=== PATIENT | male | born 1930 | race American Indian/Alaskan Native ===

== ENCOUNTER 2017-12-26 14:00 | Inpatient (IN) | payer MEDICARE ==
[2017-12-26] MEDS ORDERED: ASPIRIN PO ONE (14:34)
[2017-12-26 15:13] LABS: Basophils % (Auto) 0.4 % (0.0-1.8); Eosinophils % (Auto) 0.1 % (0.0-4.3); Hemoglobin 11.6 gm/dl (11.8-15.2); Lymphocytes # (Auto) 1.3 K/mm3 (1.2-5.4); Lymphocytes % (Auto) 14.3 % (13.4-35.0); Mean Corpuscular HGB Conc 31 % (32-34); Mean Corpuscular Hemoglobin 31 pg (28-32); Mean Corpuscular Volume 98 fl (84-94); Monocytes # (Auto) 0.7 K/mm3 (0.0-0.8); Monocytes % (Auto) 7.6 % (0.0-7.3); Platelet Count 185 K/mm3 (140-440); Red Blood Count 3.79 M/mm3 (3.65-5.03); Red Cell Distribution Width 18.7 % (13.2-15.2)
[2017-12-26 15:31] LABS: INR 1.13 (0.87-1.13)
[2017-12-26 15:32] LABS: Partial Thromboplastin Time 30.5 Sec. (24.2-36.6)
[2017-12-26 15:34] LABS: Chol/HDL Ratio 2.38 %
[2017-12-26] MEDS: LOPRESSOR IV PRN ×3 (16:02→17:11)
--- NOTE | 2017-12-26 16:24 | Emergency Department Report ---
HPI - General Chief Complaint: Chest Pain Time Seen by Provider: 12/26/17 14:48 - HPI HPI: Room 10 The patient is an 87-year-old male presenting with a chief complaint of chest pain. The patient states she's had substernal chest pressure intermittently since yesterday morning. Patient states the pain is associated nausea/vomiting , shortness of breath and diaphoresis. Patient states the pain is becoming going and currently is not present. The patient did not take his normal medications yesterday. Patient states his last stress test and cardiac catheterization occurred approximately 1 year ago Location: Chest, see above Duration: Intermittent since yesterday Quality: Pressure Severity: Currently 0/10 Modifying factors: [see above] Context: [see above] Mode of transportation: [not driving] ED Past Medical Hx - Past Medical History Previous Medical History?: Yes Hx of Cancer: Yes (prostate s/p brachytherapy) Additional medical history: afib - Surgical History Past Surgical History?: No - Family History Family history: no significant - Social History Smoking Status: Never Smoker Substance Use Type: None - Medications Home Medications: Home Medications Medication Instructions Recorded Confirmed Last Taken Type Aspirin 81 mg PO DAILY 12/26/17 12/26/17 Unknown History Cilostazol 50 mg PO BID 12/26/17 12/26/17 Unknown History Coreg 12.5 mg PO BID 12/26/17 12/26/17 Unknown History Lisinopril/Hydrochlorothiazide 20 mg PO DAILY 12/26/17 12/26/17 Unknown History NIFEdipine 30 mg PO BID 12/26/17 12/26/17 Unknown History Plavix 75 mg PO DAILY 12/26/17 12/26/17 Unknown History Rosuvastatin Calcium 20 mg PO DAILY 12/26/17 12/26/17 Unknown History ED Review of Systems ROS: Stated complaint: CHEST PAIN Other details as noted in HPI Constitutional: diaphoresis Respiratory: shortness of breath Cardiovascular: chest pain Gastrointestinal: nausea, vomiting Physical Exam - Physical Exam Vital Signs: Vital Signs 12/26/17 12/26/17 12/26/17 14:36 14:37 15:00 Temperature 97.7 F Pulse Rate 117 H 94 H 112 H Respiratory 20 16 27 H Rate Blood Pressure 124/97 161/89 O2 Sat by Pulse 96 97 95 Oximetry 12/26/17 12/26/17 12/26/17 15:09 15:30 16:02 Temperature Pulse Rate 110 H 137 H Respiratory 28 H 24 Rate Blood Pressure 152/85 O2 Sat by Pulse 96 94 Oximetry Physical Exam: GENERAL: The patient is well-developed well-nourished male sitting on stretcher not appearing to be in acute distress. [] HEENT: Normocephalic. Atraumatic. Extraocular motions are intact. Patient has moist mucous membranes. NECK: Supple. Trachea midline CHEST/LUNGS: Clear to auscultation. There is no respiratory distress noted. HEART/CARDIOVASCULAR: Irregularly irregular. There is tachycardia. There is no gallop rub or murmur. ABDOMEN: Abdomen is soft, nontender. Patient has normal bowel sounds. There is no abdominal distention. SKIN: There is no rash. There is no edema. There is no diaphoresis. NEURO: The patient is awake, alert, and oriented. The patient is cooperative. The patient has normal speech MUSCULOSKELETAL: There is no evidence of acute injury. ED Course Vital Signs 12/26/17 12/26/17 12/26/17 14:36 14:37 15:00 Temperature 97.7 F Pulse Rate 117 H 94 H 112 H Respiratory 20 16 27 H Rate Blood Pressure 124/97 161/89 O2 Sat by Pulse 96 97 95 Oximetry 12/26/17 12/26/17 12/26/17 15:09 15:30 16:02 Temperature Pulse Rate 110 H 137 H Respiratory 28 H 24 Rate Blood Pressure 152/85 O2 Sat by Pulse 96 94 Oximetry ED Medical Decision Making - Lab Data Result diagrams: 12/26/17 14:44 12/26/17 14:44 Laboratory Tests 12/26/17 12/26/17 12/26/17 14:44 14:44 15:11 WBC 9.2 RBC 3.79 Hgb 11.6 L Hct 37.0 MCV 98 H MCH 31 MCHC 31 L RDW 18.7 H Plt Count 185 Lymph % (Auto) 14.3 [place] % (Auto) 7.6 H Eos % (Auto) 0.1 Baso % (Auto) 0.4 Lymph # 1.3 [place] # 0.7 Eos # 0.0 Baso # 0.0 Seg Neutrophils % 77.6 H Seg Neutrophils # 7.2 PT 15.1 H INR 1.13 APTT 30.5 Sodium 140 Potassium 4.6 Chloride 101.8 Carbon Dioxide 22 Anion Gap 21 BUN 31 H Creatinine 1.2 Estimated GFR 57 BUN/Creatinine Ratio 26 Glucose 143 H Calcium 9.0 Troponin T 0.033 H Triglycerides 88 Cholesterol 143 LDL Cholesterol Direct 75 HDL Cholesterol 60 H Cholesterol/HDL Ratio 2.38 - EKG Data Rate: tachycardia (125 bpm) - EKG Data When compared to previous EKG there are: previous EKG unavailable Interpretation: other (H a fibrillation with a rapid ventricular response of 125 bpm) - Radiology Data Radiology results: image reviewed (chest x-ray) interpreted by me: Chest [id number] size left pleural effusion. No pneumothorax - Differential Diagnosis ACS, A. fib with RVR Critical care attestation.: If time is entered above; I have spent that time in minutes in the direct care of this critically ill patient, excluding procedure time. ED Disposition Clinical Impression: Chest pain, Atrial fibrillation with RVR, Pleural effusion, left Disposition: 09 OP ADMIT IP TO THIS HOSP Is pt being admited?: Yes Does the pt Need Aspirin: Yes Condition: Fair Instructions: Chest Pain (ED) Time of Disposition: 16:25
--- NOTE | 2017-12-26 18:20 | XRay Report ---
FINAL REPORT EXAM: XR CHEST 1V AP HISTORY: chest pain TECHNIQUE: Single, portable chest x-ray. PRIORS: None. FINDINGS: Postsurgical changes project over the heart and mild cardiomegaly. Lungs show increased interstitial markings centrally and partially confluent, bibasilar opacities. Possible small right pleural effusion and probable moderate left pleural effusion. No apparent pneumothorax. IMPRESSION: 1. Findings which may represent pulmonary edema versus nonspecific postinflammatory change or pneumonitis, and probable bilateral pleural effusions, left greater than right. Correlate clinically.
[2017-12-26] MEDS ORDERED: ZOFRAN ONE (18:26)
[2017-12-26] MEDS: ZOFRAN IV PRN (18:49)
[2017-12-26] MEDS ORDERED: MORPHINE IV ONE (18:50)
--- NOTE | 2017-12-26 21:05 | History and Physical Report ---
History of Present Illness Date of examination: 12/26/17 Date of admission: 12/26/2017 Chief complaint: Chief complaint: Left-sided chest pain for 1 day History of present illness: ANDREA The patient is an 87-year-old male presenting with a chief complaint of chest pain. The patient states he's had substernal chest pressure intermittently since yesterday morning. Patient states the pain is associated nausea/vomiting , shortness of breath and diaphoresis. Patient states the pain is becoming going and currently is not present. The patient did not take his normal medications yesterday. Patient states his last stress test and cardiac catheterization occurred approximately 1 year ago. Patient was apparently told that he should not get any more stress tests. Past Medical History Previous Medical History?: Yes Hx of Cancer: Yes (prostate s/p brachytherapy) Additional medical history: afib Surgical History Past Surgical History?: No Family History Family history: no significant Social History Smoking Status: Never Smoker Substance Use Type: None Medications Home Medications: Home Medications Medication Instructions Recorded Confirmed Last Taken Type Aspirin 81 mg PO DAILY 12/26/17 12/26/17 Unknown History Cilostazol 50 mg PO BID 12/26/17 12/26/17 Unknown History Coreg 12.5 mg PO BID 12/26/17 12/26/17 Unknown History Lisinopril/Hydrochlorothiazide 20 mg PO DAILY 12/26/17 12/26/17 Unknown History NIFEdipine 30 mg PO BID 12/26/17 12/26/17 Unknown History Plavix 75 mg PO DAILY 12/26/17 12/26/17 Unknown History Rosuvastatin Calcium 20 mg PO DAILY 12/26/17 12/26/17 Unknown History Review of Systems ROS: Stated complaint: CHEST PAIN Other details as noted in HPI Constitutional: diaphoresis Respiratory: shortness of breath Cardiovascular: chest pain Gastrointestinal: nausea, vomiting 14 point review of systems done and essentially negative Medications and Allergies Allergies Allergy/AdvReac Type Severity Reaction Status Date / Time No Known Allergies Allergy Verified 12/26/17 14:37 Home Medications Medication Instructions Recorded Confirmed Last Taken Type Aspirin 81 mg PO DAILY 12/26/17 12/26/17 Unknown History Cilostazol 50 mg PO BID 12/26/17 12/26/17 Unknown History Coreg 12.5 mg PO BID 12/26/17 12/26/17 Unknown History Lisinopril/Hydrochlorothiazide 20 mg PO DAILY 12/26/17 12/26/17 Unknown History NIFEdipine 30 mg PO BID 12/26/17 12/26/17 Unknown History Plavix 75 mg PO DAILY 12/26/17 12/26/17 Unknown History Rosuvastatin Calcium 20 mg PO DAILY 12/26/17 12/26/17 Unknown History Active Meds: Active Medications Ondansetron HCl (Zofran) 4 mg IV Q4H PRN PRN Reason: Nausea And Vomiting Last Admin: 12/26/17 18:49 Dose: 4 mg Review of Systems All systems: negative Exam - Physical Exam Narrative exam: Lying in bed comfortably - Constitutional Vitals: Temp Pulse Resp BP Pulse Ox 97.7 F 101 H 18 132/73 90 12/26/17 14:37 12/26/17 20:30 12/26/17 20:30 12/26/17 20:30 12/26/17 20:00 General appearance: Present: no acute distress, well-nourished - EENT Eyes: Present: PERRL ENT: hearing intact, clear oral mucosa - Neck Neck: Present: supple, normal ROM - Respiratory Respiratory effort: normal Respiratory: bilateral: CTA - Cardiovascular Heart rate: 86 Rhythm: irregularly irregular Heart Sounds: Present: S1 & S2. Absent: rub, click - Extremities Extremities: pulses symmetrical, No edema Peripheral Pulses: within normal limits - Abdominal General gastrointestinal: Present: soft, non-tender, non-distended, normal bowel sounds Male genitourinary: Present: normal - Rectal Rectal Exam: deferred - Integumentary Integumentary: Present: clear, warm, dry - Musculoskeletal Musculoskeletal: gait normal, strength equal bilaterally - Psychiatric Psychiatric: appropriate mood/affect, intact judgment & insight - Neurologic Neurologic: CNII-XII intact, moves all extremities - Allied Health Allied health notes reviewed: nursing, case management Results - Labs CBC & Chem 7: 12/26/17 14:44 12/26/17 14:44 Labs: Laboratory Last Values WBC 9.2 K/mm3 (4.5-11.0) 12/26/17 14:44 RBC 3.79 M/mm3 (3.65-5.03) 12/26/17 14:44 Hgb 11.6 gm/dl (11.8-15.2) L 12/26/17 14:44 Hct 37.0 % (35.5-45.6) 12/26/17 14:44 MCV 98 fl (84-94) H 12/26/17 14:44 MCH 31 pg (28-32) 12/26/17 14:44 MCHC 31 % (32-34) L 12/26/17 14:44 RDW 18.7 % (13.2-15.2) H 12/26/17 14:44 Plt Count 185 K/mm3 (140-440) 12/26/17 14:44 Lymph % (Auto) 14.3 % (13.4-35.0) 12/26/17 14:44 [place] % (Auto) 7.6 % (0.0-7.3) H 12/26/17 14:44 Eos % (Auto) 0.1 % (0.0-4.3) 12/26/17 14:44 Baso % (Auto) 0.4 % (0.0-1.8) 12/26/17 14:44 Lymph # 1.3 K/mm3 (1.2-5.4) 12/26/17 14:44 [place] # 0.7 K/mm3 (0.0-0.8) 12/26/17 14:44 Eos # 0.0 K/mm3 (0.0-0.4) 12/26/17 14:44 Baso # 0.0 K/mm3 (0.0-0.1) 12/26/17 14:44 Seg Neutrophils % 77.6 % (40.0-70.0) H 12/26/17 14:44 Seg Neutrophils # 7.2 K/mm3 (1.8-7.7) 12/26/17 14:44 PT 15.1 Sec. (12.2-14.9) H 12/26/17 15:11 INR 1.13 (0.87-1.13) 12/26/17 15:11 APTT 30.5 Sec. (24.2-36.6) 12/26/17 15:11 Sodium 140 mmol/L (137-145) 12/26/17 14:44 Potassium 4.6 mmol/L (3.6-5.0) 12/26/17 14:44 Chloride 101.8 mmol/L (98-107) 12/26/17 14:44 Carbon Dioxide 22 mmol/L (22-30) 12/26/17 14:44 Anion Gap 21 mmol/L 12/26/17 14:44 BUN 31 mg/dL (9-20) H 12/26/17 14:44 Creatinine 1.2 mg/dL (0.8-1.5) 12/26/17 14:44 Estimated GFR 57 ml/min 12/26/17 14:44 BUN/Creatinine Ratio 26 % 12/26/17 14:44 Glucose 143 mg/dL (75-100) H 12/26/17 14:44 Calcium 9.0 mg/dL (8.4-10.2) 12/26/17 14:44 Troponin T 0.030 ng/mL (0.00-0.029) H 12/26/17 17:04 Triglycerides 88 mg/dL (2-149) 12/26/17 14:44 Cholesterol 143 mg/dL (50-199) 12/26/17 14:44 LDL Cholesterol Direct 75 mg/dL (50-130) 12/26/17 14:44 HDL Cholesterol 60 mg/dL (40-59) H 12/26/17 14:44 Cholesterol/HDL Ratio 2.38 % 12/26/17 14:44 Short CBC 12/26/17 Range/Units 14:44 WBC 9.2 (4.5-11.0) K/mm3 Hgb 11.6 L (11.8-15.2) gm/dl Hct 37.0 (35.5-45.6) % Plt Count 185 (140-440) K/mm3 BMP 12/26/17 14:44 Sodium 140 Potassium 4.6 Chloride 101.8 Carbon Dioxide 22 BUN 31 H Creatinine 1.2 Glucose 143 H Calcium 9.0 Cardiac Enzymes 12/26/17 12/26/17 12/26/17 Range/Units 14:44 17:04 21:13 Troponin T 0.033 H 0.030 H 0.035 H (0.00-0.029) ng/mL - Imaging and Cardiology EKG: report reviewed (atrial fibrillation heart rate of 125 ventricular premature complex left anterior fascicular block EKG interpreted by me) Chest x-ray: report reviewed Imaging and Cardiology: Chest x-ray: FINDINGS: Postsurgical changes project over the heart and mild cardiomegaly. Lungs show increased interstitial markings centrally and partially confluent, bibasilar opacities. Possible small right pleural effusion and probable moderate left pleural effusion. No apparent pneumothorax. IMPRESSION: 1. Findings which may represent pulmonary edema versus nonspecific postinflammatory change or pneumonitis, and probable bilateral pleural effusions , left greater than right. Correlate clinically. Assessment and Plan Advance Directives: Yes (full code) Plan of care discussed with patient/family: Yes - Patient Problems (1) Acute exacerbation of congestive heart failure Onset Date: ~12/26/17 Current Visit: Yes Status: Acute Qualifiers: Heart failure type: combined systolic and diastolic Qualified Code(s): I50.43 - Acute on chronic combined systolic (congestive) and diastolic ( congestive) heart failure Plan to address problem: Patient initiated on IV Lasix Will get echocardiogram for ejection fraction and valvular function and wall motion abnormalities Cardiology consult also (2) Atrial fibrillation with RVR Onset Date: ~12/26/17 Current Visit: Yes Status: Acute Plan to address problem: Are Cardizem given in the emergency room. Transition to by mouth Cardizem. Cardiology consult (3) Chest pain Onset Date: ~12/26/17 Current Visit: Yes Status: Acute Qualifiers: Ischemic chest pain type: unspecified angina pectoris type Plan to address problem: Only troponins ordered. Patient refuses Lexiscan hence did not order Lexiscan. Will defer to cardiology. Patient's symptoms may be because of pulmonary vascular congestion. Will use IV diuretics (4) Prostate cancer Current Visit: Yes Status: Chronic Plan to address problem: In remission (5) Coronary artery disease Current Visit: Yes Status: Chronic Qualifiers: Coronary Disease-Associated Artery/Lesion type: [place] artery [place] vs. transplanted heart: [place] heart Plan to address problem: Continue Plavix (6) DVT prophylaxis Current Visit: Yes Status: Acute Plan to address problem: Heparin 5000 sq 12
[2017-12-26] MEDS ORDERED: ZOFRAN IV PRN (21:14)
[2017-12-26] MEDS ORDERED: AMBIEN PO PRN (21:14)
[2017-12-26] MEDS ORDERED: MORPHINE IV PRN (21:14)
[2017-12-26] MEDS ORDERED: SODIUM CHLORIDE FLUSH SYRINGE 10 ML IV PRN (21:14)
[2017-12-26] MEDS ORDERED: TYLENOL PO PRN (21:14)
[2017-12-26] MEDS: HALFPRIN EC PO SCH (21:30)
[2017-12-26] MEDS ORDERED: NON-FORMULARY (Lisinopril/Hydrochlorothiazide 20 MG) PO SCH (21:30)
[2017-12-26] MEDS: PLAVIX PO SCH (21:30)
[2017-12-26] MEDS ORDERED: HEPARIN SUB-Q SCH (22:00)
[2017-12-26] MEDS ORDERED: NACL 0.9% 1000 ML 1,000 ML IV SCH (22:00)
[2017-12-26] MEDS: SODIUM CHLORIDE FLUSH SYRINGE 10 ML IV SCH (22:00)
[2017-12-26] MEDS: PEPCID IV SCH (22:00)
[2017-12-26] MEDS ORDERED: K-DUR PO ONE (22:55)
[2017-12-26] MEDS ORDERED: PLAVIX ONE (23:45)
[2017-12-26] MEDS ORDERED: COREG ONE (23:46)
[2017-12-26] MEDS ORDERED: HEPARIN ONE (23:48)
[2017-12-26 23:57] LABS: Hematocrit 33.9 % (35.5-45.6); Hemoglobin 10.5 gm/dl (11.8-15.2)
[2017-12-27] MEDS: COREG PO SCH ×2 (00:05→10:34)
[2017-12-27] MEDS: HEPARIN/ 0.45% NACL-25,000 UNIT/500 ML 25,000 UNIT/500 ML BAG IV SCH ×3 (00:06→18:00)
[2017-12-27 00:07] LABS: INR 1.15 (0.87-1.13)
[2017-12-27 00:08] LABS: Partial Thromboplastin Time 29.7 Sec. (24.2-36.6)
[2017-12-27] MEDS ORDERED: PEPCID IV ONE (00:12)
[2017-12-27] MEDS ORDERED: K-DUR PO ONE (00:12)
[2017-12-27] MEDS: PLETAL PO SCH ×3 (00:14→22:28)
[2017-12-27] MEDS: PROCARDIA XL PO SCH ×3 (00:22→22:28)
[2017-12-27 04:29] LABS: Basophils % (Auto) 0.4 % (0.0-1.8); Hematocrit 33.8 % (35.5-45.6); Hemoglobin 10.6 gm/dl (11.8-15.2); Lymphocytes # (Auto) 1.2 K/mm3 (1.2-5.4); Lymphocytes % (Auto) 14.5 % (13.4-35.0); Mean Corpuscular HGB Conc 32 % (32-34); Mean Corpuscular Hemoglobin 31 pg (28-32); Mean Corpuscular Volume 98 fl (84-94); Monocytes # (Auto) 0.7 K/mm3 (0.0-0.8); Monocytes % (Auto) 8.3 % (0.0-7.3); Platelet Count 157 K/mm3 (140-440); Red Blood Count 3.45 M/mm3 (3.65-5.03); Red Cell Distribution Width 19.2 % (13.2-15.2)
[2017-12-27 04:49] LABS: Alanine Aminotransferase 20 units/L (7-56); Albumin 3.7 g/dL (3.9-5); BUN/Creatinine Ratio 38; Blood Urea Nitrogen 45 mg/dL (9-20); Calcium 9.1 mg/dL (8.4-10.2); Hemolysis Index 13
[2017-12-27] MEDS: LASIX IV SCH ×2 (05:10→18:39)
[2017-12-27] MEDS: PEPCID IV SCH ×2 (10:32→22:30)
[2017-12-27] MEDS: PLAVIX PO SCH (10:35)
[2017-12-27] MEDS: HALFPRIN EC PO SCH (10:35)
--- NOTE | 2017-12-27 11:07 | Consultation ---
History of Present Illness Consult date: 12/27/17 Consult reason: chest pain History of present illness: Patient is an 87yr old male who presented with complaints of shortness of breath and chest pain. Patient gives a history of prostate cancer, prior CVA and coronary artery disease with remote bypass grafting. He usually receives his cardiac care with Dr Joshua in [place]. A caridac consultation is requested for further evaluation. A chest xray reports pulmonary edema vs pneumonitis. There is also bilateral pleural effusions. Patient also has bilateral lower extremity edema. Patient also noted hypoxic with O2 sats in the 70s. 12 lead ECG shows rapid atrial fibrillation. Duration of his atrial fibrillation is unknown. Home medications does not list any oral anticoagulants. Medications and Allergies Allergies Allergy/AdvReac Type Severity Reaction Status Date / Time No Known Allergies Allergy Verified 12/26/17 14:37 Home Medications Medication Instructions Recorded Confirmed Last Taken Type Aspirin 81 mg PO DAILY 12/26/17 12/26/17 Unknown History Cilostazol 50 mg PO BID 12/26/17 12/26/17 Unknown History Coreg 12.5 mg PO BID 12/26/17 12/26/17 Unknown History Lisinopril/Hydrochlorothiazide 20 mg PO DAILY 12/26/17 12/26/17 Unknown History NIFEdipine 30 mg PO BID 12/26/17 12/26/17 Unknown History Plavix 75 mg PO DAILY 12/26/17 12/26/17 Unknown History Rosuvastatin Calcium 20 mg PO DAILY 12/26/17 12/26/17 Unknown History Active Meds: Active Medications Acetaminophen (Tylenol) 650 mg PO Q4H PRN PRN Reason: Pain MILD(1-3)/Fever >100.5/BANUELOS Aspirin (Halfprin Ec) 81 mg PO DAILY [facility] Last Admin: 12/27/17 10:35 Dose: 81 mg Atorvastatin Calcium (Lipitor) 40 mg PO QHS [facility] Last Admin: 12/27/17 00:21 Dose: 40 mg Carvedilol (Coreg) 12.5 mg PO BID [facility] Last Admin: 12/27/17 10:34 Dose: 12.5 mg Cilostazol (Pletal) 50 mg PO BID [facility] Last Admin: 12/27/17 10:33 Dose: 50 mg Clopidogrel Bisulfate (Plavix) 75 mg PO DAILY [facility] Last Admin: 12/27/17 10:35 Dose: 75 mg Famotidine (Pepcid) 20 mg IV BID [facility] Last Admin: 12/27/17 10:32 Dose: 20 mg Furosemide (Lasix) 40 mg IV 0600,1800 [facility] Last Admin: 12/27/17 05:10 Dose: 40 mg Sodium Chloride (Nacl 0.9% 1000 Ml) 1,000 mls @ 42 mls/hr IV DIRECT [facility] Heparin Sodium/Sodium Chloride (Heparin/ 0.45% Nacl-25,000 Unit/500 Ml) 25,000 unit in 500 mls @ 24 mls/hr IV TITR [facility]; Protocol Last Admin: 12/27/17 08:35 Dose: 1,150 units/hr, 23 mls/hr Miscellaneous Medication (Lisinopril/Hydrochlorothiazide) 20 mg PO DAILY [facility] Morphine Sulfate (Morphine) 2 mg IV Q4H PRN PRN Reason: Pain, Moderate (4-6) Nifedipine (Procardia Xl) 30 mg PO BID [facility] Last Admin: 12/27/17 10:33 Dose: 30 mg Ondansetron HCl (Zofran) 4 mg IV Q4H PRN PRN Reason: Nausea And Vomiting Last Admin: 12/26/17 18:49 Dose: 4 mg Ondansetron HCl (Zofran) 4 mg IV Q8H PRN PRN Reason: Nausea And Vomiting Sodium Chloride (Sodium Chloride Flush Syringe 10 Ml) 10 ml IV BID [facility] Last Admin: 12/26/17 22:00 Dose: 10 ml Sodium Chloride (Sodium Chloride Flush Syringe 10 Ml) 10 ml IV PRN PRN PRN Reason: LINE FLUSH Zolpidem Tartrate (Ambien) 5 mg PO QHS PRN PRN Reason: Insomnia Physical Examination Vital Signs Pulse Resp Pulse Ox 117 H 20 96 12/26/17 14:36 12/26/17 14:36 12/26/17 14:36 General appearance: no acute distress HEENT: Positive: PERRL Cardiac: Positive: irregularly irregular Lungs: Positive: Decreased Breath Sounds Neuro: Positive: Weakness Extremities: Present: +2 Edema Results 12/27/17 03:44 12/27/17 03:44 Cardiac Enzymes 12/27/17 Range/Units 03:44 AST 25 (5-40) units/L Coagulation 12/26/17 12/26/17 Range/Units 15:11 23:32 PT 15.1 H 15.3 H (12.2-14.9) Sec. INR 1.13 1.15 H (0.87-1.13) APTT 30.5 29.7 (24.2-36.6) Sec. Lipids 12/26/17 Range/Units 14:44 Triglycerides 88 (2-149) mg/dL Cholesterol 143 (50-199) mg/dL HDL Cholesterol 60 H (40-59) mg/dL Cholesterol/HDL Ratio 2.38 % CBC 12/26/17 12/26/17 12/27/17 Range/Units 14:44 23:32 03:44 WBC 9.2 8.5 (4.5-11.0) K/mm3 RBC 3.79 3.45 L (3.65-5.03) M/mm3 Hgb 11.6 L 10.5 L 10.6 L (11.8-15.2) gm/dl Hct 37.0 33.9 L 33.8 L (35.5-45.6) % Plt Count 185 163 157 (140-440) K/mm3 Lymph # 1.3 1.2 (1.2-5.4) K/mm3 [place] # 0.7 0.7 (0.0-0.8) K/mm3 Eos # 0.0 0.0 (0.0-0.4) K/mm3 Baso # 0.0 0.0 (0.0-0.1) K/mm3 Comprehensive Metabolic Panel 12/26/17 12/27/17 Range/Units 14:44 03:44 Sodium 140 145 (137-145) mmol/L Potassium 4.6 4.8 (3.6-5.0) mmol/L Chloride 101.8 102.8 (98-107) mmol/L Carbon Dioxide 22 28 (22-30) mmol/L BUN 31 H 45 H (9-20) mg/dL Creatinine 1.2 1.2 (0.8-1.5) mg/dL Glucose 143 H 109 H (75-100) mg/dL Calcium 9.0 9.1 (8.4-10.2) mg/dL AST 25 (5-40) units/L ALT 20 (7-56) units/L Alkaline Phosphatase 65 (35-129) units/L Total Protein 5.9 L (6.3-8.2) g/dL Albumin 3.7 L (3.9-5) g/dL
--- NOTE | 2017-12-27 11:11 | Consultation ---
History of Present Illness Consult date: 12/27/17 Consult reason: shortness of breath History of present illness: Patient is admitted with shortness of breath and hypoxia. He was also noted to have persistent atrial fibrillation, which he states is of new onset. Actually he was reported to have afib back in 2012. He follows with his pot reliner Dr Joshua in [place]. He is a poor historian. Patient describes balck stools. In fact, back in 2014 he had positive FOBT in [place] and anemia requiring blood transfusions. GI work up was offered to the patient but he has refused. He also has a history of falls. Also in 2014 he presented to the ER at [facility] with right foot and ankle pain after a fall. He denies chest pain. Past History Past Medical History: atrial fib, anemia, CAD, hyperlipidemia, stroke, other ( PAD, prostate cancer) Past Surgical History: appendectomy, CABG, Other (carotid enarterectomy, prostatectomy, back surgery) Social history: other (former smoker) Family history: no significant family history Medications and Allergies Allergies Allergy/AdvReac Type Severity Reaction Status Date / Time No Known Allergies Allergy Verified 12/26/17 14:37 Home Medications Medication Instructions Recorded Confirmed Last Taken Type Aspirin 81 mg PO DAILY 12/26/17 12/26/17 Unknown History Cilostazol 50 mg PO BID 12/26/17 12/26/17 Unknown History Coreg 12.5 mg PO BID 12/26/17 12/26/17 Unknown History Lisinopril/Hydrochlorothiazide 20 mg PO DAILY 12/26/17 12/26/17 Unknown History NIFEdipine 30 mg PO BID 12/26/17 12/26/17 Unknown History Plavix 75 mg PO DAILY 12/26/17 12/26/17 Unknown History Rosuvastatin Calcium 20 mg PO DAILY 12/26/17 12/26/17 Unknown History Active Meds: Active Medications Acetaminophen (Tylenol) 650 mg PO Q4H PRN PRN Reason: Pain MILD(1-3)/Fever >100.5/BANUELOS Aspirin (Halfprin Ec) 81 mg PO DAILY [facility] Last Admin: 12/27/17 10:35 Dose: 81 mg Atorvastatin Calcium (Lipitor) 40 mg PO QHS [facility] Last Admin: 12/27/17 00:21 Dose: 40 mg Carvedilol (Coreg) 12.5 mg PO BID [facility] Last Admin: 12/27/17 10:34 Dose: 12.5 mg Cilostazol (Pletal) 50 mg PO BID [facility] Last Admin: 12/27/17 10:33 Dose: 50 mg Clopidogrel Bisulfate (Plavix) 75 mg PO DAILY [facility] Last Admin: 12/27/17 10:35 Dose: 75 mg Famotidine (Pepcid) 20 mg IV BID [facility] Last Admin: 12/27/17 10:32 Dose: 20 mg Furosemide (Lasix) 40 mg IV 0600,1800 [facility] Last Admin: 12/27/17 05:10 Dose: 40 mg Sodium Chloride (Nacl 0.9% 1000 Ml) 1,000 mls @ 42 mls/hr IV DIRECT [facility] Heparin Sodium/Sodium Chloride (Heparin/ 0.45% Nacl-25,000 Unit/500 Ml) 25,000 unit in 500 mls @ 24 mls/hr IV TITR [facility]; Protocol Last Admin: 12/27/17 08:35 Dose: 1,150 units/hr, 23 mls/hr Miscellaneous Medication (Lisinopril/Hydrochlorothiazide) 20 mg PO DAILY [facility] Morphine Sulfate (Morphine) 2 mg IV Q4H PRN PRN Reason: Pain, Moderate (4-6) Nifedipine (Procardia Xl) 30 mg PO BID [facility] Last Admin: 12/27/17 10:33 Dose: 30 mg Ondansetron HCl (Zofran) 4 mg IV Q4H PRN PRN Reason: Nausea And Vomiting Last Admin: 12/26/17 18:49 Dose: 4 mg Ondansetron HCl (Zofran) 4 mg IV Q8H PRN PRN Reason: Nausea And Vomiting Sodium Chloride (Sodium Chloride Flush Syringe 10 Ml) 10 ml IV BID [facility] Last Admin: 12/26/17 22:00 Dose: 10 ml Sodium Chloride (Sodium Chloride Flush Syringe 10 Ml) 10 ml IV PRN PRN PRN Reason: LINE FLUSH Zolpidem Tartrate (Ambien) 5 mg PO QHS PRN PRN Reason: Insomnia Review of Systems All systems: negative Physical Examination Vital Signs Pulse Resp Pulse Ox 117 H 20 96 12/26/17 14:36 12/26/17 14:36 12/26/17 14:36 General appearance: no acute distress HEENT: Positive: PERRL Neck: Positive: neck supple. Negative: JVD/HJR Cardiac: Positive: irregularly irregular Lungs: Positive: Decreased Breath Sounds Abdomen: Positive: Soft Extremities: Present: +1 Edema Results 12/27/17 03:44 12/27/17 03:44 Cardiac Enzymes 12/27/17 Range/Units 03:44 AST 25 (5-40) units/L Coagulation 12/26/17 12/26/17 Range/Units 15:11 23:32 PT 15.1 H 15.3 H (12.2-14.9) Sec. INR 1.13 1.15 H (0.87-1.13) APTT 30.5 29.7 (24.2-36.6) Sec. Lipids 12/26/17 Range/Units 14:44 Triglycerides 88 (2-149) mg/dL Cholesterol 143 (50-199) mg/dL HDL Cholesterol 60 H (40-59) mg/dL Cholesterol/HDL Ratio 2.38 % CBC 12/26/17 12/26/17 12/27/17 Range/Units 14:44 23:32 03:44 WBC 9.2 8.5 (4.5-11.0) K/mm3 RBC 3.79 3.45 L (3.65-5.03) M/mm3 Hgb 11.6 L 10.5 L 10.6 L (11.8-15.2) gm/dl Hct 37.0 33.9 L 33.8 L (35.5-45.6) % Plt Count 185 163 157 (140-440) K/mm3 Lymph # 1.3 1.2 (1.2-5.4) K/mm3 [place] # 0.7 0.7 (0.0-0.8) K/mm3 Eos # 0.0 0.0 (0.0-0.4) K/mm3 Baso # 0.0 0.0 (0.0-0.1) K/mm3 Comprehensive Metabolic Panel 12/26/17 12/27/17 Range/Units 14:44 03:44 Sodium 140 145 (137-145) mmol/L Potassium 4.6 4.8 (3.6-5.0) mmol/L Chloride 101.8 102.8 (98-107) mmol/L Carbon Dioxide 22 28 (22-30) mmol/L BUN 31 H 45 H (9-20) mg/dL Creatinine 1.2 1.2 (0.8-1.5) mg/dL Glucose 143 H 109 H (75-100) mg/dL Calcium 9.0 9.1 (8.4-10.2) mg/dL AST 25 (5-40) units/L ALT 20 (7-56) units/L Alkaline Phosphatase 65 (35-129) units/L Total Protein 5.9 L (6.3-8.2) g/dL Albumin 3.7 L (3.9-5) g/dL Assessment and Plan Shortness of breath and hypoxia ? Pulmonary edema on CXR Atrial fibrillation, persistent This is not a new diagnosis, afib is known since 2012 CAD s/p CABG - unknown LVEF Non-specific troponin History of stroke and right CEA Anemia History of acute blood loss in 2014 requiring blood transfusions with positive FOBT At that time patient refused colonoscopy and EGD Patient does report black stools this admission History of falls Recommendations: Change coreg to metoprolol 50 mg po bid Patient is not a candidate for oysterman anticoagulation Obtain echocardiogram Obtain records from his primary pot reliner
[2017-12-27] MEDS: LOPRESSOR PO SCH ×2 (12:20→22:29)
--- NOTE | 2017-12-27 16:44 | Progress Note ---
Assessment and Plan Assessment and plan: Patient is 87-year-old man with a history of atrial fibrillation, GI bleed, hypertension, remote prostate cancer status post brachytherapy, coronary artery disease status post CABG, dyslipidemia, peripheral arterial disease and anemia of chronic disease who presents with shortness of breath and chest pains. Heparin drip started for elevated troponin pCXR reported as findings which may represent pulmonary edema versus nonspecific postinflammatory change of pneumonitis and probable bilateral pleural effusion, left greater than right, correlate clinically. 12/27/17 13:54 - Radiology Dept. Note by ISABELLE GALLARDO [facility] Num: [id number] : 1930 Patient Age: 87 VASCULAR LAB.PRELIMINARY REPORT. BLE VENOUS DUPLEX DONE BEDSIDE. TECHNICALLY LIMITED DUE TO AMS/MOVEMENT. EVIDENCE OF ACUTE DVT IN THE LT.POPLITEAL VEIN EXTENDING TO THE LT.PTV/PERONEAL VEINS IN THE MID CALF. LLOYD (TISH) INFORMED AT 1338. Initialized on 12/27/17 13:54 - END OF NOTE -Acute combined respiratory failure, present on admission: Continue BiPAP, consulted and discussed with electrical engineering manager. 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 -Atrial fibrillation not on anticoagulation most likely due to the GI bleed and anemia -Acute left leg DVT, complex medical decision, because history of GI bleed, currently on IV heparin drip: Consult vascular for evaluation of IVC filter -Anemia, unknown baseline. Currently on heparin drip, check FOBT CCT: The high probability of a clinically significant, sudden or life threatening deterioration of the [neurologic,cardiac] system(s) required my full and direct attention, intervention and personal management. The aggregate critical care time was [32] minutes. This time is in addition to time spent performing reported procedures but includes the following: [x] Data Review and interpretation [x] Patient assessment and monitoring of vital signs [x] Documentation [x] Medication orders and management History Interval history: Pt seen and examined. f/u for sob. He was on bipap this morning at 50%, respiratory therapy downgraded to Vm for about 2 hours and he tired out. Bipap then restarted. Hospitalist Physical - Physical exam Narrative exam: GEN: Ill-appearing, NAD, AWAKE, ALERT, ORIENTATED 2, missed the location, HEENT: NCAT, EOMI, PERRL, OP Clear NECK: supple, no adenopathy, no thyromegaly, equivocal JVD CVS/HEART: Irregular regular NORMAL S1S2, pulses present bilaterally CHEST/LUNGS: Bibasilar crackles Symmetrical chest expansion, good air entry bilaterally GI/Abdomen: soft, NTND, good bowel sounds, no guarding or rebound /Bladder: no suprapubic tenderness, no CVA or paraspinal tenderness EXT/Skin: Bilateral pitting leg edema MSK: FROM x 4 Neuro: CN 2-12 grossly intact, no new focal deficits Psych: calm - Constitutional Vitals: Temp Pulse Resp BP Pulse Ox 98.4 F 49 L 20 93/46 92 12/27/17 15:49 12/27/17 15:49 12/27/17 15:49 12/27/17 15:49 12/27/17 15:49 General appearance: Present: no acute distress Results - Labs CBC & Chem 7: 12/27/17 03:44 12/27/17 03:44 Labs: Laboratory Last Values WBC 8.5 K/mm3 (4.5-11.0) 12/27/17 03:44 RBC 3.45 M/mm3 (3.65-5.03) L 12/27/17 03:44 Hgb 10.6 gm/dl (11.8-15.2) L 12/27/17 03:44 Hct 33.8 % (35.5-45.6) L 12/27/17 03:44 MCV 98 fl (84-94) H 12/27/17 03:44 MCH 31 pg (28-32) 12/27/17 03:44 MCHC 32 % (32-34) 12/27/17 03:44 RDW 19.2 % (13.2-15.2) H 12/27/17 03:44 Plt Count 157 K/mm3 (140-440) 12/27/17 03:44 Lymph % (Auto) 14.5 % (13.4-35.0) 12/27/17 03:44 [place] % (Auto) 8.3 % (0.0-7.3) H 12/27/17 03:44 Eos % (Auto) 0.0 % (0.0-4.3) 12/27/17 03:44 Baso % (Auto) 0.4 % (0.0-1.8) 12/27/17 03:44 Lymph # 1.2 K/mm3 (1.2-5.4) 12/27/17 03:44 [place] # 0.7 K/mm3 (0.0-0.8) 12/27/17 03:44 Eos # 0.0 K/mm3 (0.0-0.4) 12/27/17 03:44 Baso # 0.0 K/mm3 (0.0-0.1) 12/27/17 03:44 Seg Neutrophils % 76.8 % (40.0-70.0) H 12/27/17 03:44 Seg Neutrophils # 6.5 K/mm3 (1.8-7.7) 12/27/17 03:44 PT 15.3 Sec. (12.2-14.9) H 12/26/17 23:32 INR 1.15 (0.87-1.13) H 12/26/17 23:32 APTT 29.7 Sec. (24.2-36.6) 12/26/17 23:32 Heparin Anti-Xa Level 1.85 U.I./ml (0.3-0.7) H 12/27/17 12:06 POC ABG pH 7.335 (7.35-7.45) L 12/27/17 13:15 POC ABG pCO2 50.8 (35-45) H 12/27/17 13:15 POC ABG pO2 72 (80-105) L 12/27/17 13:15 POC ABG HCO3 27.1 12/27/17 13:15 POC ABG Total CO2 29 12/27/17 13:15 POC ABG O2 Sat 93 12/27/17 13:15 POC ABG Base Excess 1 12/27/17 13:15 FiO2 50 % 12/27/17 13:15 Sodium 145 mmol/L (137-145) 12/27/17 03:44 Potassium 4.8 mmol/L (3.6-5.0) 12/27/17 03:44 Chloride 102.8 mmol/L (98-107) 12/27/17 03:44 Carbon Dioxide 28 mmol/L (22-30) 12/27/17 03:44 Anion Gap 19 mmol/L 12/27/17 03:44 BUN 45 mg/dL (9-20) H 12/27/17 03:44 Creatinine 1.2 mg/dL (0.8-1.5) 12/27/17 03:44 Estimated GFR > 60 ml/min 12/27/17 03:44 BUN/Creatinine Ratio 38 % 12/27/17 03:44 Glucose 109 mg/dL (75-100) H 12/27/17 03:44 POC Glucose 127 (70-105) H 12/27/17 05:50 Hemoglobin A1c 4.8 % (4-6) 12/26/17 21:20 Calcium 9.1 mg/dL (8.4-10.2) 12/27/17 03:44 Total Bilirubin 0.70 mg/dL (0.1-1.2) 12/27/17 03:44 AST 25 units/L (5-40) 12/27/17 03:44 ALT 20 units/L (7-56) 12/27/17 03:44 Alkaline Phosphatase 65 units/L (35-129) 12/27/17 03:44 Troponin T 0.035 ng/mL (0.00-0.029) H 12/26/17 21:13 Total Protein 5.9 g/dL (6.3-8.2) L 12/27/17 03:44 Albumin 3.7 g/dL (3.9-5) L 12/27/17 03:44 Albumin/Globulin Ratio 1.7 % 12/27/17 03:44 Triglycerides 88 mg/dL (2-149) 12/26/17 14:44 Cholesterol 143 mg/dL (50-199) 12/26/17 14:44 LDL Cholesterol Direct 75 mg/dL (50-130) 12/26/17 14:44 HDL Cholesterol 60 mg/dL (40-59) H 12/26/17 14:44 Cholesterol/HDL Ratio 2.38 % 12/26/17 14:44
[2017-12-27] MEDS: SODIUM CHLORIDE FLUSH SYRINGE 10 ML IV SCH ×2 (19:51→22:30)
[2017-12-28] MEDS: HEPARIN/ 0.45% NACL-25,000 UNIT/500 ML 25,000 UNIT/500 ML BAG IV SCH (01:27)
[2017-12-28 05:51] LABS: Hematocrit 24.3 % (35.5-45.6); Hemoglobin 7.6 gm/dl (11.8-15.2); Mean Corpuscular HGB Conc 31 % (32-34); Mean Corpuscular Hemoglobin 30 pg (28-32); Mean Corpuscular Volume 97 fl (84-94); Platelet Count 133 K/mm3 (140-440)
[2017-12-28 06:12] LABS: Calcium 8.1 mg/dL (8.4-10.2)
[2017-12-28] MEDS: LASIX IV SCH ×2 (06:27→17:43)
--- NOTE | 2017-12-28 08:45 | Progress Note ---
Assessment and Plan Assessment and plan: Patient is 87-year-old man with a history of atrial fibrillation, GI bleed, hypertension, remote prostate cancer status post brachytherapy, coronary artery disease status post CABG, dyslipidemia, peripheral arterial disease and anemia of chronic disease who presents with shortness of breath and chest pains. Heparin drip started for elevated troponin pCXR reported as findings which may represent pulmonary edema versus nonspecific postinflammatory change of pneumonitis and probable bilateral pleural effusion, left greater than right, correlate clinically. 12/27/17 13:54 - Radiology Dept. Note by ISABELLE GALLARDO [facility] Num: [id number] : 1930 Patient Age: 87 VASCULAR LAB.PRELIMINARY REPORT. BLE VENOUS DUPLEX DONE BEDSIDE. TECHNICALLY LIMITED DUE TO AMS/MOVEMENT. EVIDENCE OF ACUTE DVT IN THE LT.POPLITEAL VEIN EXTENDING TO THE LT.PTV/PERONEAL VEINS IN THE MID CALF. LLOYD (TISH) INFORMED AT 1338. Initialized on 12/27/17 13:54 - END OF NOTE -Acute combined respiratory failure, present on admission: Continue BiPAP, consulted and discussed with Stump Blower. -Mildly Elevated troponin, unlikely ACS, Cardiology is following. 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 -Atrial fibrillation not on anticoagulation most likely due to prior history of GI bleed and anemia, will defer to Cardiology -Acute left leg DVT, complex medical decision, because history of GI bleed, currently on IV heparin drip: Consult vascular for evaluation of IVC filter -Anemia, unknown baseline. Acute on chronic anemia, Currently on heparin drip, check FOBT 12/28/17: off bipap on Vm, but he keeps taking it off, H/H dropped, as well as plt. No BM in 2 days, will give soap suds enema for FOBT. Will stop heparin drip. Cr up to 1.7 from 1.2; therefore, I consulted Nephrology for the VIRGIL. Decrease iv lasix to once a day. He is still on nss at 42ml/hr ECHO to be done today. Pulm, Vascular and Nephrology consult pending Restraints renewed transfuse 1 unit of prbc, consult GI I called Matthias Arredondo [phone], spoke with his Opal, he has signs of dementia per Opal (step father and POA) discussed code status, they will decide and call me back prognosis is guarded, intermediate prognosis poor. patients' (Matthias's mother) in hospice with daughter, Francisca. CCT: The high probability of a clinically significant, sudden or life threatening deterioration of the [neurologic,cardiac] system(s) required my full and direct attention, intervention and personal management. The aggregate critical care time was [31] minutes. This time is in addition to time spent performing reported procedures but includes the following: [x] Data Review and interpretation [x] Patient assessment and monitoring of vital signs [x] Documentation [x] Medication orders and management History Interval history: Pt seen and examined. f/u for sob. He was on bipap this morning at 50%, respiratory therapy downgraded to Vm for about 2 hours and he tired out. Bipap then restarted. Overnight, he has been on bipap. He was confused yesterday and restraints were applied when Bipap restarted. Hospitalist Physical - Physical exam Narrative exam: GEN: Ill-appearing, NAD, AWAKE, ALERT, ORIENTATED 2, missed the location, HEENT: NCAT, EOMI, PERRL, OP Clear NECK: supple, no adenopathy, no thyromegaly, equivocal JVD CVS/HEART: Irregular regular NORMAL S1S2, pulses present bilaterally CHEST/LUNGS: Bibasilar crackles Symmetrical chest expansion, good air entry bilaterally GI/Abdomen: soft, NTND, good bowel sounds, no guarding or rebound /Bladder: no suprapubic tenderness, no CVA or paraspinal tenderness EXT/Skin: Bilateral pitting leg edema MSK: FROM x 4 Neuro: CN 2-12 grossly intact, no new focal deficits Psych: calm - Constitutional Vitals: Temp Pulse Resp BP Pulse Ox 97.3 F L 106 H 20 131/53 98 12/28/17 07:47 12/28/17 07:47 12/28/17 07:47 12/28/17 07:47 12/28/17 07:47 General appearance: Present: no acute distress Results - Labs CBC & Chem 7: 12/28/17 13:32 12/28/17 04:28 Labs: Laboratory Last Values WBC 7.6 K/mm3 (4.5-11.0) 12/28/17 04:28 RBC 2.50 M/mm3 (3.65-5.03) L 12/28/17 04:28 Hgb 7.6 gm/dl (11.8-15.2) L D 12/28/17 04:28 Hct 24.3 % (35.5-45.6) L D 12/28/17 04:28 MCV 97 fl (84-94) H 12/28/17 04:28 MCH 30 pg (28-32) 12/28/17 04:28 MCHC 31 % (32-34) L 12/28/17 04:28 RDW 18.0 % (13.2-15.2) H 12/28/17 04:28 Plt Count 133 K/mm3 (140-440) L 12/28/17 04:28 Lymph % (Auto) 14.5 % (13.4-35.0) 12/27/17 03:44 [place] % (Auto) 8.3 % (0.0-7.3) H 12/27/17 03:44 Eos % (Auto) 0.0 % (0.0-4.3) 12/27/17 03:44 Baso % (Auto) 0.4 % (0.0-1.8) 12/27/17 03:44 Lymph # 1.2 K/mm3 (1.2-5.4) 12/27/17 03:44 [place] # 0.7 K/mm3 (0.0-0.8) 12/27/17 03:44 Eos # 0.0 K/mm3 (0.0-0.4) 12/27/17 03:44 Baso # 0.0 K/mm3 (0.0-0.1) 12/27/17 03:44 Seg Neutrophils % 76.8 % (40.0-70.0) H 12/27/17 03:44 Seg Neutrophils # 6.5 K/mm3 (1.8-7.7) 12/27/17 03:44 PT 15.3 Sec. (12.2-14.9) H 12/26/17 23:32 INR 1.15 (0.87-1.13) H 12/26/17 23:32 APTT 29.7 Sec. (24.2-36.6) 12/26/17 23:32 Heparin Anti-Xa Level 0.57 U.I./ml (0.3-0.7) 12/28/17 07:10 POC ABG pH 7.335 (7.35-7.45) L 12/27/17 13:15 POC ABG pCO2 50.8 (35-45) H 12/27/17 13:15 POC ABG pO2 72 (80-105) L 12/27/17 13:15 POC ABG HCO3 27.1 12/27/17 13:15 POC ABG Total CO2 29 12/27/17 13:15 POC ABG O2 Sat 93 12/27/17 13:15 POC ABG Base Excess 1 12/27/17 13:15 FiO2 50 % 12/27/17 13:15 Sodium 143 mmol/L (137-145) 12/28/17 04:28 Potassium 5.0 mmol/L (3.6-5.0) 12/28/17 04:28 Chloride 100.6 mmol/L (98-107) 12/28/17 04:28 Carbon Dioxide 22 mmol/L (22-30) 12/28/17 04:28 Anion Gap 25 mmol/L 12/28/17 04:28 BUN 66 mg/dL (9-20) H 12/28/17 04:28 Creatinine 1.7 mg/dL (0.8-1.5) H 12/28/17 04:28 Estimated GFR 46 ml/min 12/28/17 04:28 BUN/Creatinine Ratio 39 % 12/28/17 04:28 Glucose 96 mg/dL (75-100) 12/28/17 04:28 POC Glucose 127 (70-105) H 12/27/17 05:50 Hemoglobin A1c 4.8 % (4-6) 12/26/17 21:20 Calcium 8.1 mg/dL (8.4-10.2) L 12/28/17 04:28 Total Bilirubin 0.70 mg/dL (0.1-1.2) 12/27/17 03:44 AST 25 units/L (5-40) 12/27/17 03:44 ALT 20 units/L (7-56) 12/27/17 03:44 Alkaline Phosphatase 65 units/L (35-129) 12/27/17 03:44 Troponin T 0.035 ng/mL (0.00-0.029) H 12/26/17 21:13 Total Protein 5.9 g/dL (6.3-8.2) L 12/27/17 03:44 Albumin 3.7 g/dL (3.9-5) L 12/27/17 03:44 Albumin/Globulin Ratio 1.7 % 12/27/17 03:44 Triglycerides 88 mg/dL (2-149) 12/26/17 14:44 Cholesterol 143 mg/dL (50-199) 12/26/17 14:44 LDL Cholesterol Direct 75 mg/dL (50-130) 12/26/17 14:44 HDL Cholesterol 60 mg/dL (40-59) H 12/26/17 14:44 Cholesterol/HDL Ratio 2.38 % 12/26/17 14:44 TSH 0.678 mlU/mL (0.270-4.200) 12/28/17 04:28
[2017-12-28] MEDS: LOPRESSOR PO SCH ×2 (10:37→21:56)
[2017-12-28] MEDS ORDERED: LASIX IV ONE ×2 (11:10→15:00)
--- NOTE | 2017-12-28 11:16 | Consultation ---
History of Present Illness Consult date: 12/28/17 Requesting physician: DEJA CONTRERAS Reason for consult: abnormal CXR/CT, other (acute respiratory failure) History of present illness: 87 y/o male, admitted via the ED secondary to chest pain. Mildly elevated troponin. Was requiring continous bipap therapy so pulmonary was consulted. Currently on 50% venti mask. Awake and alert but not sure what baseline mental state is. CXR shows bilateral interstitial changes with small bilateral effusions but left greater than right. Also evidence of prior open heart surgery and cardiomegaly. Per step son, patient smoked for about 25 years and quit 40 years ago. Remainder is negative. Past History Past Medical History: atrial fib, anemia, CAD, hyperlipidemia, stroke, other ( PAD, prostate cancer) Past Surgical History: appendectomy, CABG, Other (carotid enarterectomy, prostatectomy, back surgery) Social history: other (former smoker) Family history: no significant family history Medications and Allergies Allergies Allergy/AdvReac Type Severity Reaction Status Date / Time No Known Allergies Allergy Verified 12/26/17 14:37 Home Medications Medication Instructions Recorded Confirmed Last Taken Type Aspirin 81 mg PO DAILY 12/26/17 12/26/17 Unknown History Cilostazol 50 mg PO BID 12/26/17 12/26/17 Unknown History Coreg 12.5 mg PO BID 12/26/17 12/26/17 Unknown History Lisinopril/Hydrochlorothiazide 20 mg PO DAILY 12/26/17 12/26/17 Unknown History NIFEdipine 30 mg PO BID 12/26/17 12/26/17 Unknown History Plavix 75 mg PO DAILY 12/26/17 12/26/17 Unknown History Rosuvastatin Calcium 20 mg PO DAILY 12/26/17 12/26/17 Unknown History Active Meds: Active Medications Acetaminophen (Tylenol) 650 mg PO Q4H PRN PRN Reason: Pain MILD(1-3)/Fever >100.5/BANUELOS Last Admin: 12/27/17 22:29 Dose: 650 mg Aspirin (Halfprin Ec) 81 mg PO DAILY [facility] Last Admin: 12/27/17 10:35 Dose: 81 mg Atorvastatin Calcium (Lipitor) 40 mg PO QHS [facility] Last Admin: 12/27/17 22:30 Dose: 40 mg Cilostazol (Pletal) 50 mg PO BID [facility] Last Admin: 12/27/17 22:28 Dose: 50 mg Clopidogrel Bisulfate (Plavix) 75 mg PO DAILY [facility] Last Admin: 12/27/17 10:35 Dose: 75 mg Famotidine (Pepcid) 20 mg IV BID [facility] Last Admin: 12/27/17 22:30 Dose: 20 mg Furosemide (Lasix) 40 mg IV DAILY [facility] Furosemide (Lasix) 40 mg IV ONCE ONE Stop: 12/28/17 11:11 Sodium Chloride (Nacl 0.9% 1000 Ml) 1,000 mls @ 42 mls/hr IV DIRECT [facility] Metoprolol Tartrate (Lopressor) 50 mg PO BID [facility] Last Admin: 12/27/17 22:29 Dose: 50 mg Morphine Sulfate (Morphine) 2 mg IV Q4H PRN PRN Reason: Pain, Moderate (4-6) Nifedipine (Procardia Xl) 30 mg PO BID [facility] Last Admin: 12/27/17 22:28 Dose: 30 mg Ondansetron HCl (Zofran) 4 mg IV Q4H PRN PRN Reason: Nausea And Vomiting Last Admin: 12/26/17 18:49 Dose: 4 mg Sodium Chloride (Sodium Chloride Flush Syringe 10 Ml) 10 ml IV BID [facility] Last Admin: 12/27/17 22:30 Dose: 10 ml Sodium Chloride (Sodium Chloride Flush Syringe 10 Ml) 10 ml IV PRN PRN PRN Reason: LINE FLUSH Review of Systems ROS unobtainable: due to mental status Physical Examination Vital signs: Vital Signs Pulse Resp Pulse Ox 117 H 20 96 12/26/17 14:36 12/26/17 14:36 12/26/17 14:36 General appearance: no acute distress, alert, appears uncomfortable Eyes: non-icteric ENT: oropharynx moist Neck: supple Effort: mildly labored Ascultation: Bilateral: diminished breath sounds Percussion: Bilateral: not dull Cardiovascular: irregular rhythm Gastrointestinal: soft Results - Laboratory Findings CBC and BMP: 12/28/17 04:28 12/28/17 04:28 ABG POC ABG pH 7.335 (7.35-7.45) L 12/27/17 13:15 POC ABG pCO2 50.8 (35-45) H 12/27/17 13:15 POC ABG pO2 72 (80-105) L 12/27/17 13:15 POC ABG HCO3 27.1 12/27/17 13:15 POC ABG Total CO2 29 12/27/17 13:15 POC ABG O2 Sat 93 12/27/17 13:15 PT/INR, D-dimer PT 15.3 Sec. (12.2-14.9) H 12/26/17 23:32 INR 1.15 (0.87-1.13) H 12/26/17 23:32 Abnormal lab findings: Abnormal Labs 12/26/17 12/26/17 12/26/17 14:44 14:44 15:11 RBC Hgb 11.6 L Hct MCV 98 H MCHC 31 L RDW 18.7 H Plt Count [place] % (Auto) 7.6 H Seg Neutrophils % 77.6 H PT 15.1 H INR Heparin Anti-Xa Level POC ABG pH POC ABG pCO2 POC ABG pO2 BUN 31 H Creatinine Glucose 143 H POC Glucose Calcium Troponin T 0.033 H Total Protein Albumin HDL Cholesterol 60 H 12/26/17 12/26/17 12/26/17 17:04 21:13 23:32 RBC Hgb 10.5 L Hct 33.9 L MCV MCHC RDW Plt Count [place] % (Auto) Seg Neutrophils % PT INR Heparin Anti-Xa Level POC ABG pH POC ABG pCO2 POC ABG pO2 BUN Creatinine Glucose POC Glucose Calcium Troponin T 0.030 H 0.035 H Total Protein Albumin HDL Cholesterol 12/26/17 12/27/17 12/27/17 23:32 01:46 03:44 RBC 3.45 L Hgb 10.6 L Hct 33.8 L MCV 98 H MCHC RDW 19.2 H Plt Count [place] % (Auto) 8.3 H Seg Neutrophils % 76.8 H PT 15.3 H INR 1.15 H Heparin Anti-Xa Level POC ABG pH 7.287 L POC ABG pCO2 59.3 H POC ABG pO2 73 L BUN Creatinine Glucose POC Glucose Calcium Troponin T Total Protein Albumin HDL Cholesterol 12/27/17 12/27/17 12/27/17 03:44 05:50 12:06 RBC Hgb Hct MCV MCHC RDW Plt Count [place] % (Auto) Seg Neutrophils % PT INR Heparin Anti-Xa Level 1.85 H POC ABG pH POC ABG pCO2 POC ABG pO2 BUN 45 H Creatinine Glucose 109 H POC Glucose 127 H Calcium Troponin T Total Protein 5.9 L Albumin 3.7 L HDL Cholesterol 12/27/17 12/28/17 12/28/17 13:15 04:28 04:28 RBC 2.50 L Hgb 7.6 L D Hct 24.3 L D MCV 97 H MCHC 31 L RDW 18.0 H Plt Count 133 L [place] % (Auto) Seg Neutrophils % PT INR Heparin Anti-Xa Level POC ABG pH 7.335 L POC ABG pCO2 50.8 H POC ABG pO2 72 L BUN 66 H Creatinine 1.7 H Glucose POC Glucose Calcium 8.1 L Troponin T Total Protein Albumin HDL Cholesterol - Diagnostic Findings Chest x-ray: image reviewed (as stated in HPI) Assessment and Plan 87 y/o male with acute respiratory failure secondary with bilateral pleural effusions and NSTEMI 1. Check BNP 2. Give lasix 40mg IV x1 now, agree with daily dosing ordered by primary team 3. Follow up echo results 4. Patient was on heparin which has been stopped. drop in H/H from today compared to yesterday. Primary aware, repeating and consulting GI 5. Will continue to monitor closely
--- NOTE | 2017-12-28 11:28 | Progress Note ---
Assessment and Plan - Patient Problems (1) Shortness of breath Current Visit: Yes Status: Acute Plan to address problem: The patient's shortness of breath and hypoxemia is likely multifactorial. There is bilateral pleural effusion worse on the left, and also evidence of mild interstitial edema, likely due to systolic heart failure and fluid overload. In addition, I'm concerned about pulmonary embolism in the setting of acute venous thromboembolism. The patient is previously assessed to be a poor risk for long-term oral anticoagulation, and on this admission has an IVC filter implanted. I will defer to pulmonary medicine for further assessment of pulmonary arterial thromboembolism. (2) Acute exacerbation of congestive heart failure Onset Date: ~12/26/17 Current Visit: Yes Status: Acute Qualifiers: Heart failure type: combined systolic and diastolic Qualified Code(s): I50.43 - Acute on chronic combined systolic (congestive) and diastolic ( congestive) heart failure Plan to address problem: Systolic heart failure and coronary artery disease will be treated medically with optimal diuretics, afterload reducing agents, beta blockers. He is not a candidate for further ischemic cardiac workup. (3) Chronic atrial fibrillation Current Visit: Yes Status: Acute Plan to address problem: Rate control therapy will be optimized, patient is not a candidate for long- term oral anticoagulation. Subjective Date of service: 12/28/17 Interval history: The patient is a frail elderly 87-year-old with multiple comorbidities including dementia, coronary artery disease, previous coronary bypass, prior CVA and prior carotid endarterectomy. He also has what appears to be chronic atrial fibrillation. Due to a history of GI bleed, chronic anemia, possibly his frail elderly status, he is assessed as a poor candidate for oral anticoagulation therapy. He presented to this hospital 2 days ago with shortness of breath and hypoxemia. A chest x-ray on my review demonstrates bilateral pleural effusion with a very small effusion on the right, and a large, moderate sized effusion on the left. There is cardiomegaly, and evidence of mild interstitial edema. In addition, the patient underwent workup for venous thromboembolism and is found to have an acute DVT of the left lower extremity. Venous thromboembolism has been treated with insertion of an IVC filter. Currently, the patient is on the telemetry floor, no acute respiratory distress. On telemetry, he remains in atrial fibrillation with a well- controlled ventricular response. Objective Vital Signs Temp Pulse Resp BP BP BP Pulse Ox 04/14/18 09:03 97.3 F L 20 L 20 131/53 92 12/28/17 07:47 97.3 F L 106 H 20 131/53 98 12/28/17 06:00 110 H 12/28/17 04:46 98.2 F 88 18 127/59 12/28/17 00:45 98.2 F 84 18 110/54 92 12/27/17 22:00 101 H 24 12/27/17 20:32 92 H 29 H 93 12/27/17 18:00 98.4 F 96 H 18 123/56 93 12/27/17 15:49 98.4 F 49 L 20 93/46 92 12/27/17 13:20 65 21 96 12/27/17 12:30 98.0 F 88 20 97/50 94 12/27/17 12:20 88 92/40 12/27/17 12:09 98.0 F 88 18 92/40 94 12/27/17 11:30 98.0 F 82 18 91/46 97/50 95 - Physical Examination General: Cachectic, Other (frail, elderly, chronically ill-appearing) HEENT: Positive: PERRL Neck: Positive: neck supple. Negative: JVD/HJR Cardiac: Positive: irregularly irregular Lungs: Positive: Decreased Breath Sounds Neuro: Positive: Grossly Intact Abdomen: Positive: Soft Skin: Positive: Clear Extremities: Present: edema (trace) - Labs and Meds CBC 12/28/17 Range/Units 04:28 WBC 7.6 (4.5-11.0) K/mm3 RBC 2.50 L (3.65-5.03) M/mm3 Hgb 7.6 L D (11.8-15.2) gm/dl Hct 24.3 L D (35.5-45.6) % Plt Count 133 L (140-440) K/mm3 Comprehensive Metabolic Panel 12/28/17 Range/Units 04:28 Sodium 143 (137-145) mmol/L Potassium 5.0 (3.6-5.0) mmol/L Chloride 100.6 (98-107) mmol/L Carbon Dioxide 22 (22-30) mmol/L BUN 66 H (9-20) mg/dL Creatinine 1.7 H (0.8-1.5) mg/dL Glucose 96 (75-100) mg/dL Calcium 8.1 L (8.4-10.2) mg/dL - Imaging and Cardiology EKG: report reviewed (atrial fibrillation heart rate of 125 ventricular premature complex left anterior fascicular block EKG interpreted by me)
--- NOTE | 2017-12-28 11:29 | Consultation ---
History of Present Illness - Reason for Consult Consult date: 12/28/17 left Le DVT Requesting physician: DEJA CONTRERAS - History of Present Illness Patient came in for chest pain. He has extensive cardiac history as well as h/o GI bleed. He had venous duplex that showed acute DVT in the left popliteal vein extending into tibial veins. Past History Past Medical History: atrial fib, anemia, CAD, hyperlipidemia, stroke, other ( PAD, prostate cancer) Past Surgical History: appendectomy, CABG, Other (carotid enarterectomy, prostatectomy, back surgery) Social history: other (former smoker) Family history: no significant family history Medications and Allergies Allergies Allergy/AdvReac Type Severity Reaction Status Date / Time No Known Allergies Allergy Verified 12/26/17 14:37 Home Medications Medication Instructions Recorded Confirmed Last Taken Type Aspirin 81 mg PO DAILY 12/26/17 12/26/17 Unknown History Cilostazol 50 mg PO BID 12/26/17 12/26/17 Unknown History Coreg 12.5 mg PO BID 12/26/17 12/26/17 Unknown History Lisinopril/Hydrochlorothiazide 20 mg PO DAILY 12/26/17 12/26/17 Unknown History NIFEdipine 30 mg PO BID 12/26/17 12/26/17 Unknown History Plavix 75 mg PO DAILY 12/26/17 12/26/17 Unknown History Rosuvastatin Calcium 20 mg PO DAILY 12/26/17 12/26/17 Unknown History Active Meds: Active Medications Acetaminophen (Tylenol) 650 mg PO Q4H PRN PRN Reason: Pain MILD(1-3)/Fever >100.5/BANUELOS Last Admin: 12/27/17 22:29 Dose: 650 mg Aspirin (Halfprin Ec) 81 mg PO DAILY [facility] Last Admin: 12/27/17 10:35 Dose: 81 mg Atorvastatin Calcium (Lipitor) 40 mg PO QHS [facility] Last Admin: 12/27/17 22:30 Dose: 40 mg Cilostazol (Pletal) 50 mg PO BID [facility] Last Admin: 12/27/17 22:28 Dose: 50 mg Clopidogrel Bisulfate (Plavix) 75 mg PO DAILY [facility] Last Admin: 12/27/17 10:35 Dose: 75 mg Famotidine (Pepcid) 20 mg IV BID [facility] Last Admin: 12/27/17 22:30 Dose: 20 mg Furosemide (Lasix) 40 mg IV DAILY [facility] Sodium Chloride (Nacl 0.9% 1000 Ml) 1,000 mls @ 42 mls/hr IV DIRECT [facility] Metoprolol Tartrate (Lopressor) 50 mg PO BID [facility] Last Admin: 12/27/17 22:29 Dose: 50 mg Morphine Sulfate (Morphine) 2 mg IV Q4H PRN PRN Reason: Pain, Moderate (4-6) Nifedipine (Procardia Xl) 30 mg PO BID [facility] Last Admin: 12/27/17 22:28 Dose: 30 mg Ondansetron HCl (Zofran) 4 mg IV Q4H PRN PRN Reason: Nausea And Vomiting Last Admin: 12/26/17 18:49 Dose: 4 mg Sodium Chloride (Sodium Chloride Flush Syringe 10 Ml) 10 ml IV BID [facility] Last Admin: 12/27/17 22:30 Dose: 10 ml Sodium Chloride (Sodium Chloride Flush Syringe 10 Ml) 10 ml IV PRN PRN PRN Reason: LINE FLUSH Exam - Constitutional Vitals: Temp Pulse Resp BP Pulse Ox 97.3 F L 20 L 20 131/53 92 12/28/17 09:03 12/28/17 09:03 12/28/17 09:03 12/28/17 09:03 12/28/17 09:03 Results - Labs CBC & Chem 7: 12/28/17 04:28 12/28/17 04:28 Labs: Abnormal lab results 12/27/17 12/27/17 12/28/17 Range/Units 12:06 13:15 04:28 RBC 2.50 L (3.65-5.03) M/mm3 Hgb 7.6 L D (11.8-15.2) gm/dl Hct 24.3 L D (35.5-45.6) % MCV 97 H (84-94) fl MCHC 31 L (32-34) % RDW 18.0 H (13.2-15.2) % Plt Count 133 L (140-440) K/mm3 Heparin Anti-Xa Level 1.85 H (0.3-0.7) U.I./ml POC ABG pH 7.335 L (7.35-7.45) POC ABG pCO2 50.8 H (35-45) POC ABG pO2 72 L (80-105) BUN (9-20) mg/dL Creatinine (0.8-1.5) mg/dL Calcium (8.4-10.2) mg/dL 12/28/17 Range/Units 04:28 RBC (3.65-5.03) M/mm3 Hgb (11.8-15.2) gm/dl Hct (35.5-45.6) % MCV (84-94) fl MCHC (32-34) % RDW (13.2-15.2) % Plt Count (140-440) K/mm3 Heparin Anti-Xa Level (0.3-0.7) U.I./ml POC ABG pH (7.35-7.45) POC ABG pCO2 (35-45) POC ABG pO2 (80-105) BUN 66 H (9-20) mg/dL Creatinine 1.7 H (0.8-1.5) mg/dL Calcium 8.1 L (8.4-10.2) mg/dL Assessment and Plan Left LE acute DVT with h/o GI bleed. He is currently on Heparin drip. Patient is high risk for anticoagulation as outpatient. He lives alone, has h/o GI bleed, refused workup at that time, currently h/h also decreased on Heparin drip. He also has h/o falls. Will plan for IVc filter placement tomorrow. continue Heparin drip as tolerated.
[2017-12-28 12:20] LABS: Hematocrit 22.7 % (35.5-45.6)
[2017-12-28] MEDS ORDERED: NACL 0.9% 500 ML 500 ML IV ONE (12:58)
[2017-12-28 13:59] LABS: Hemoglobin 6.9 gm/dl (11.8-15.2)
--- NOTE | 2017-12-28 15:05 | Consultation ---
History of Present Illness - Reason for Consult Consult date: 12/28/17 acute renal failure Requesting physician: DEJA CONTRERAS - History of Present Illness This is a 87 yo M with PMHx of chronic a-fib, CAD, anemia, Stroke, who was initially admitted with substernal chest pressure intermittently since 1day [employer]. Pain was associated with nausea/vomiting, shortness of breath and diaphoresis. pt was found to be in a-fib, CXR also showed evidence of pulmonary edema. Given also high suspicion for PE in the setting of acute LLE DVT pt was started on IV heparin, which was now discontinued to acute drop in H/H. Pt has history of GI bleed in the past. labs showed Hb of 6.9 today along with elevated BUN/Cr at 66/1.7mg/dl from admission Cr of 1.2mg/dl, for which renal consult is requested. pt was noted to be borderline hypotensive with BP around 90/60s on 12/27. No recent NSAIDs or IV contrast exposure reported. Past History Past Medical History: atrial fib, anemia, CAD, hyperlipidemia, stroke, other ( PAD, prostate cancer) Past Surgical History: appendectomy, CABG, Other (carotid enarterectomy, prostatectomy, back surgery) Social history: other (former smoker) Family history: no significant family history Medications and Allergies Allergies Allergy/AdvReac Type Severity Reaction Status Date / Time No Known Allergies Allergy Verified 12/26/17 14:37 Home Medications Medication Instructions Recorded Confirmed Last Taken Type Aspirin 81 mg PO DAILY 12/26/17 12/26/17 Unknown History Cilostazol 50 mg PO BID 12/26/17 12/26/17 Unknown History Coreg 12.5 mg PO BID 12/26/17 12/26/17 Unknown History Lisinopril/Hydrochlorothiazide 20 mg PO DAILY 12/26/17 12/26/17 Unknown History NIFEdipine 30 mg PO BID 12/26/17 12/26/17 Unknown History Plavix 75 mg PO DAILY 12/26/17 12/26/17 Unknown History Rosuvastatin Calcium 20 mg PO DAILY 12/26/17 12/26/17 Unknown History Active Meds: Active Medications Acetaminophen (Tylenol) 650 mg PO Q4H PRN PRN Reason: Pain MILD(1-3)/Fever >100.5/BANUELOS Last Admin: 12/27/17 22:29 Dose: 650 mg Aspirin (Halfprin Ec) 81 mg PO DAILY [facility] Last Admin: 12/27/17 10:35 Dose: 81 mg Atorvastatin Calcium (Lipitor) 40 mg PO QHS [facility] Last Admin: 12/27/17 22:30 Dose: 40 mg Cilostazol (Pletal) 50 mg PO BID [facility] Last Admin: 12/27/17 22:28 Dose: 50 mg Clopidogrel Bisulfate (Plavix) 75 mg PO DAILY [facility] Last Admin: 12/27/17 10:35 Dose: 75 mg Famotidine (Pepcid) 20 mg IV BID [facility] Last Admin: 12/27/17 22:30 Dose: 20 mg Furosemide (Lasix) 40 mg IV DAILY [facility] Sodium Chloride (Nacl 0.9% 1000 Ml) 1,000 mls @ 42 mls/hr IV DIRECT [facility] Metoprolol Tartrate (Lopressor) 50 mg PO BID [facility] Last Admin: 12/27/17 22:29 Dose: 50 mg Morphine Sulfate (Morphine) 2 mg IV Q4H PRN PRN Reason: Pain, Moderate (4-6) Nifedipine (Procardia Xl) 30 mg PO BID [facility] Last Admin: 12/27/17 22:28 Dose: 30 mg Ondansetron HCl (Zofran) 4 mg IV Q4H PRN PRN Reason: Nausea And Vomiting Last Admin: 12/26/17 18:49 Dose: 4 mg Sodium Chloride (Sodium Chloride Flush Syringe 10 Ml) 10 ml IV BID [facility] Last Admin: 12/27/17 22:30 Dose: 10 ml Sodium Chloride (Sodium Chloride Flush Syringe 10 Ml) 10 ml IV PRN PRN PRN Reason: LINE FLUSH Review of Systems All systems: negative Constitutional: fatigue, weakness Cardiovascular: shortness of breath, dyspnea on exertion, paroxysmal nocturnal dyspnea Exam - Vital Signs Vital signs: Vital Signs Pulse Resp Pulse Ox 117 H 20 96 12/26/17 14:36 12/26/17 14:36 12/26/17 14:36 - General Appearance General appearance: well-developed, appears stated age EENT: ATNC, PERRL, mucous membranes moist Neck: Present: neck supple Respiratory: Decreased Breath Sounds Heart: regular, S1S2 Gastrointestinal: Present: normoactive bowel sounds Integumentary: no rash, other (no edema ) Neurologic: no focal deficit, strength 5/5, CN 3-12 intact Results - Lab Results 12/28/17 13:32 12/28/17 04:28 Most recent lab results Calcium 8.1 mg/dL (8.4-10.2) L 12/28/17 04:28 Laboratory Tests 12/26/17 12/27/17 12/27/17 14:44 01:46 03:44 POC ABG pH 7.287 L POC ABG pCO2 POC ABG pO2 73 L POC ABG HCO3 28.3 POC ABG Total CO2 30 POC ABG O2 Sat 92 POC ABG Base Excess 2 FiO2 40 Calcium 9.1 Total Bilirubin 0.70 AST 25 ALT 20 Alkaline Phosphatase 65 NT-Pro-B Natriuret Pep Total Protein 5.9 L Albumin 3.7 L Albumin/Globulin Ratio 1.7 Triglycerides 88 Cholesterol 143 LDL Cholesterol Direct 75 HDL Cholesterol 60 H Cholesterol/HDL Ratio 2.38 TSH 12/27/17 12/28/17 12/28/17 13:15 04:28 11:50 POC ABG pH 7.335 L POC ABG pCO2 50.8 H POC ABG pO2 72 L POC ABG HCO3 27.1 POC ABG Total CO2 29 POC ABG O2 Sat 93 POC ABG Base Excess 1 FiO2 50 Calcium Total Bilirubin AST ALT Alkaline Phosphatase NT-Pro-B Natriuret Pep 21441 H Total Protein Albumin Albumin/Globulin Ratio Triglycerides Cholesterol LDL Cholesterol Direct HDL Cholesterol Cholesterol/HDL Ratio TSH 0.678 Assessment and Plan - Patient Problems (1) Acute tubular necrosis Current Visit: Yes Status: Acute Plan to address problem: suspect acute ischemic ATN in the setting of hemorrhagic anemia, hypotensive episodes. IV diuresis contributing to superimposed pre-renal azotemia. lasix was decreased to 40mg IV daily, pt arranged for 1PRBC transfusion. Out of proportion elevation of BUN to Cr indicate possible acute GI bleed. cont supportive care for ATN avoid nephrtoxins, NSAIDs IV contrast, keep MAP > 65mmHg check urine lytes/ protein/cr ratio further recommendations depending on clinical course of the patient (2) Acute post-hemorrhagic anemia Current Visit: Yes Status: Acute Plan to address problem: GI work up on going, heparin gtt was stopped. 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
[2017-12-28] MEDS: PEPCID IV SCH ×2 (15:14→21:55)
[2017-12-28] MEDS: HALFPRIN EC PO SCH (15:14)
[2017-12-28] MEDS: PLAVIX PO SCH (15:15)
[2017-12-28] MEDS: PLETAL PO SCH ×2 (15:15→21:55)
[2017-12-28] MEDS: SODIUM CHLORIDE FLUSH SYRINGE 10 ML IV SCH ×2 (15:16→21:56)
[2017-12-28] MEDS: ZOFRAN IV PRN (15:16)
[2017-12-28] MEDS: PROCARDIA XL PO SCH ×2 (15:43→21:56)
[2017-12-28 18:52] LABS: Bilirubin,Urine NEG (Negative); Blood,Urine NEG (Negative); Color,Urine Yellow (Yellow); Mucus,Urine FEW /HPF; Protein,Urine <15 mg/dL mg/dL (Negative); Urobilinogen,Urine < 2.0 mg/dL (<2.0)
[2017-12-28 18:57] LABS: Creatinine,Urine 28.8 mg/dL (0.1-20.0)
[2017-12-29 07:11] LABS: Hematocrit 22.7 % (35.5-45.6); Mean Corpuscular HGB Conc 31 % (32-34); Mean Corpuscular Hemoglobin 29 pg (28-32); Mean Corpuscular Volume 96 fl (84-94); Platelet Count 140 K/mm3 (140-440); Red Blood Count 2.38 M/mm3 (3.65-5.03); Red Cell Distribution Width 17.5 % (13.2-15.2)
[2017-12-29 07:30] LABS: Calcium 8.5 mg/dL (8.4-10.2)
[2017-12-29] MEDS ORDERED: NACL 0.9% 500 ML 500 ML IV ONE (09:29)
[2017-12-29] MEDS ORDERED: HEPARIN/NS 5000 UNIT/500ML(CATH LAB) 500 ML IR ONE (09:43)
[2017-12-29] MEDS ORDERED: SUBLIMAZE ONE (09:44)
[2017-12-29] MEDS ORDERED: XYLOCAINE 2% INFILTRATI ONE (09:44)
[2017-12-29] MEDS ORDERED: VERSED ONE (09:44)
[2017-12-29] MEDS: LOPRESSOR PO SCH ×2 (09:45→22:51)
[2017-12-29] MEDS: PROCARDIA XL PO SCH ×2 (09:46→22:51)
--- NOTE | 2017-12-29 11:08 | Event Note ---
Date: 12/29/17 Patient currently down for IVC placement. Reviewed all notes from yesterday. PE is definitely on the differential, however I believe that the risks of anticoagulation in a patient with prior GI bleed and now a significant drop in his hemoglobin after only short term use with heparin out weight the benefits of anticoaguation. Placing an IVC filter is the most appropriate thing to do and I would not recommend anticoagulation in this patient.
--- NOTE | 2017-12-29 11:16 | Operative Report ---
Operative Report Operative Report: Operative note: Date: 12/29/2017 Preoperative diagnosis: Left leg DVT Postoperative diagnosis: Same. Operation: Ultrasound-guided access of right common femoral vein Venogram Placement of IVC filter Surgeon: Cathleen Christie. Asst.: None Anesthesia: Moderate sedation EBL: None Findings: Patent IVC without evidence of clot Indications: 87-year-old gentleman with multiple medical problems developed left popliteal vein and tibial veins DVT. Patient was severely anemic with GI bleed. I will see filter placement was discussed with patient and family. Consent was signed and all questions answered. Operative details: Patient was brought to the slab lifting supervisor and placed in supine position. His right groin was prepped and draped in sterile fashion. Timeout was performed. Right common femoral vein was accessed under continuous ultrasound with micropuncture needle and that was exchanged to micropuncture sheath over micropuncture wire. [place] wire was inserted and advanced into proximal IVC. Access sheath from [employer] femoral IVC filter was inserted and positioned at second lumbar vertebra. Introducer was removed and venogram was performed visualizing location of renal veins. They were at top of L2. IVC filter was placed with the tip just below renal veins. Postprocedure venogram showed excellent positioning of IVC filter. Sheath was removed and pressure applied. Sterile dressing was placed. Patient tolerated the procedure well and was transferred to recovery room in stable condition.
--- NOTE | 2017-12-29 12:32 | Progress Note ---
Assessment and Plan Assessment and plan: Patient is 87-year-old man with a history of atrial fibrillation, GI bleed, hypertension, remote prostate cancer status post brachytherapy, coronary artery disease status post CABG, dyslipidemia, peripheral arterial disease and anemia of chronic disease who presents with shortness of breath and chest pains. Heparin drip started for elevated troponin pCXR reported as findings which may represent pulmonary edema versus nonspecific postinflammatory change of pneumonitis and probable bilateral pleural effusion, left greater than right, correlate clinically. 12/27/17 13:54 - Radiology Dept. Note by ISABELLE GALLARDO [facility] Num: [id number] : 1930 Patient Age: 87 VASCULAR LAB.PRELIMINARY REPORT. BLE VENOUS DUPLEX DONE BEDSIDE. TECHNICALLY LIMITED DUE TO AMS/MOVEMENT. EVIDENCE OF ACUTE DVT IN THE LT.POPLITEAL VEIN EXTENDING TO THE LT.PTV/PERONEAL VEINS IN THE MID CALF. LLOYD (TISH) INFORMED AT 1338. Initialized on 12/27/17 13:54 - END OF NOTE -Acute combined respiratory failure, present on admission: Continue BiPAP, consulted and discussed with [employer] Supervisor. -Mildly Elevated troponin, unlikely ACS, Cardiology is following. 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 -Atrial fibrillation not on anticoagulation most likely due to prior history of GI bleed and anemia, will defer to Cardiology -Acute left leg DVT, complex medical decision, because history of GI bleed, currently on IV heparin drip: Consult vascular for evaluation of IVC filter -Anemia, unknown baseline. Acute on chronic anemia, Currently on heparin drip, check FOBT -Acute renal failure, vasomotor nephropathy with suspect ATN: Renal is following 12/28/17: off bipap on Vm, but he keeps taking it off, H/H dropped, as well as plt. No BM in 2 days, will give soap suds enema for FOBT. Will stop heparin drip. Cr up to 1.7 from 1.2; therefore, I consulted Nephrology for the VIRGIL. Decrease iv lasix to once a day. He is still on nss at 42ml/hr ECHO to be done today. Pulm, Vascular and Nephrology consult pending Restraints renewed transfuse 1 unit of prbc, consult GI I called Matthias Arredondo [phone], spoke with his Opal, he has signs of dementia per Opal (step father and POA)==>23/[address] Anthony Alexandre' s ([place]) office in [place], [place] discussed code status, they will decide and call me back prognosis is guarded, long-term prognosis poor. patients' (Matthias's mother) in hospice with daughter, Jamilah. 12/29/17: D/w Matthias at nursing station and d/w patient's Leonila over the phone, they have elected to make him DNR/DNI understanding that the IVC is attempt to prevent embolism to lungs, which may have already occurred. No CTA chest because of renal failure and no v/q because of high o2 requirement and unable to treat with anticoagulation anyway. Now, Mr. Solis has active melanic stools, hgb is at 7.0 s/p 1 unit yesterday, will give more blood transfusion but the risk of more p. edema and worsening heart failure is high. I stopped the asa and plavix due to melanic stools and gib. I have also called and d/w GI , Dr. Hernandez. CCT: The high probability of a clinically significant, sudden or life threatening deterioration of the [neurologic,cardiac] system(s) required my full and direct attention, intervention and personal management. The aggregate critical care time was [40] minutes. This time is in addition to time spent performing reported procedures but includes the following: [x] Data Review and interpretation [x] Patient assessment and monitoring of vital signs [x] Documentation [x] Medication orders and management History Interval history: Pt seen and examined. f/u for sob. He was on bipap this morning at 50%, respiratory therapy downgraded to Vm for about 2 hours and he tired out. Bipap then restarted. Overnight, he has been on bipap. He was confused yesterday and restraints were applied when Bipap restarted. Hospitalist Physical - Physical exam Narrative exam: GEN: Ill-appearing, NAD, AWAKE, ALERT, ORIENTATED 2, missed the location, HEENT: NCAT, EOMI, PERRL, OP Clear NECK: supple, no adenopathy, no thyromegaly, equivocal JVD CVS/HEART: Irregular regular NORMAL S1S2, pulses present bilaterally CHEST/LUNGS: Bibasilar crackles Symmetrical chest expansion, good air entry bilaterally GI/Abdomen: soft, NTND, good bowel sounds, no guarding or rebound /Bladder: no suprapubic tenderness, no CVA or paraspinal tenderness EXT/Skin: Bilateral pitting leg edema MSK: FROM x 4 Neuro: CN 2-12 grossly intact, no new focal deficits Psych: calm - Constitutional Vitals: Temp Pulse Resp BP Pulse Ox 97.9 F 80 21 99/67 97 12/29/17 06:30 12/29/17 09:45 12/29/17 06:30 12/29/17 09:45 12/29/17 06:30 General appearance: Present: no acute distress Results - Labs CBC & Chem 7: 12/29/17 06:34 04 06:34 Labs: Laboratory Last Values WBC 12.0 K/mm3 (4.5-11.0) H 12/29/17 06:34 RBC 2.38 M/mm3 (3.65-5.03) L 12/29/17 06:34 Hgb 7.0 gm/dl (11.8-15.2) L 12/29/17 06:34 Hct 22.7 % (35.5-45.6) L 12/29/17 06:34 MCV 96 fl (84-94) H 12/29/17 06:34 MCH 29 pg (28-32) 12/29/17 06:34 MCHC 31 % (32-34) L 12/29/17 06:34 RDW 17.5 % (13.2-15.2) H 12/29/17 06:34 Plt Count 140 K/mm3 (140-440) 12/29/17 06:34 Lymph % (Auto) 14.5 % (13.4-35.0) 12/27/17 03:44 Perry % (Auto) 8.3 % (0.0-7.3) H 12/27/17 03:44 Eos % (Auto) 0.0 % (0.0-4.3) 12/27/17 03:44 Baso % (Auto) 0.4 % (0.0-1.8) 12/27/17 03:44 Lymph # 1.2 K/mm3 (1.2-5.4) 12/27/17 03:44 Perry # 0.7 K/mm3 (0.0-0.8) 12/27/17 03:44 Eos # 0.0 K/mm3 (0.0-0.4) 12/27/17 03:44 Baso # 0.0 K/mm3 (0.0-0.1) 12/27/17 03:44 Seg Neutrophils % 76.8 % (40.0-70.0) H 12/27/17 03:44 Seg Neutrophils # 6.5 K/mm3 (1.8-7.7) 12/27/17 03:44 PT 15.3 Sec. (12.2-14.9) H 12/26/17 23:32 INR 1.15 (0.87-1.13) H 12/26/17 23:32 APTT 29.7 Sec. (24.2-36.6) 12/26/17 23:32 Heparin Anti-Xa Level 0.57 U.I./ml (0.3-0.7) 12/28/17 07:10 POC ABG pH 7.335 (7.35-7.45) L 12/27/17 13:15 POC ABG pCO2 50.8 (35-45) H 12/27/17 13:15 POC ABG pO2 72 (80-105) L 12/27/17 13:15 POC ABG HCO3 27.1 12/27/17 13:15 POC ABG Total CO2 29 12/27/17 13:15 POC ABG O2 Sat 93 12/27/17 13:15 POC ABG Base Excess 1 12/27/17 13:15 FiO2 50 % 12/27/17 13:15 Sodium 140 mmol/L (137-145) 12/29/17 06:34 Potassium 4.8 mmol/L (3.6-5.0) 12/29/17 06:34 Chloride 99.9 mmol/L (98-107) 12/29/17 06:34 Carbon Dioxide 24 mmol/L (22-30) 12/29/17 06:34 Anion Gap 21 mmol/L 12/29/17 06:34 BUN 92 mg/dL (9-20) H 12/29/17 06:34 Creatinine 2.1 mg/dL (0.8-1.5) H 12/29/17 06:34 Estimated GFR 36 ml/min 12/29/17 06:34 BUN/Creatinine Ratio 44 % 12/29/17 06:34 Glucose 103 mg/dL (75-100) H 12/29/17 06:34 POC Glucose 127 (70-105) H 12/27/17 05:50 Hemoglobin A1c 4.8 % (4-6) 12/26/17 21:20 Calcium 8.5 mg/dL (8.4-10.2) 12/29/17 06:34 Total Bilirubin 0.70 mg/dL (0.1-1.2) 12/27/17 03:44 AST 25 units/L (5-40) 12/27/17 03:44 ALT 20 units/L (7-56) 12/27/17 03:44 Alkaline Phosphatase 65 units/L (35-129) 12/27/17 03:44 Troponin T 0.035 ng/mL (0.00-0.029) H 12/26/17 21:13 NT-Pro-B Natriuret Pep 84844 pg/mL (0-900) H 12/28/17 11:50 Total Protein 5.9 g/dL (6.3-8.2) L 12/27/17 03:44 Albumin 3.7 g/dL (3.9-5) L 12/27/17 03:44 Albumin/Globulin Ratio 1.7 % 12/27/17 03:44 Triglycerides 88 mg/dL (2-149) 12/26/17 14:44 Cholesterol 143 mg/dL (50-199) 12/26/17 14:44 LDL Cholesterol Direct 75 mg/dL (50-130) 12/26/17 14:44 HDL Cholesterol 60 mg/dL (40-59) H 12/26/17 14:44 Cholesterol/HDL Ratio 2.38 % 12/26/17 14:44 TSH 0.678 mlU/mL (0.270-4.200) 12/28/17 04:28 Urine Color Yellow (Yellow) 12/28/17 15:02 Urine Turbidity Clear (Clear) 12/28/17 15:02 Urine pH 5.0 (5.0-7.0) 12/28/17 15:02 Ur Specific Pablo 1.009 (1.003-1.030) 12/28/17 15:02 Urine Protein <15 mg/dl mg/dL (Negative) 12/28/17 15:02 Urine Glucose (UA) Neg mg/dL (Negative) 12/28/17 15:02 Urine Ketones Neg mg/dL (Negative) 12/28/17 15:02 Urine Blood Neg (Negative) 12/28/17 15:02 Urine Nitrite Neg (Negative) 12/28/17 15:02 Urine Bilirubin Neg (Negative) 12/28/17 15:02 Urine Urobilinogen < 2.0 mg/dL (<2.0) 12/28/17 15:02 Ur Leukocyte Esterase Neg (Negative) 12/28/17 15:02 Urine WBC (Auto) 0.0 /HPF (0.0-6.0) 12/28/17 15:02 Urine RBC (Auto) 1.0 /HPF (0.0-6.0) 12/28/17 15:02 Urine Mucus Few /HPF 12/28/17 15:02 Urine Creatinine 28.8 mg/dL (0.1-20.0) H 12/28/17 14:59 Urine Sodium 70 mmol/L 12/28/17 14:59 Urine Total Protein 7 mg/dL (5-11.8) 12/28/17 14:59 Blood Type O POSITIVE 12/28/17 13:32 Antibody Screen Positive 12/28/17 13:32 Antibody Identification Anti-Fya 12/28/17 13:32 Crossmatch See Detail 12/28/17 13:32
--- NOTE | 2017-12-29 13:14 | Consultation ---
History of Present Illness - Reason for Consult Consult date: 12/29/17 - History of Present Illness 87 yo WM adm with SOB, and found to be in CHF, rapid A Fib, with new LLE DVT, and possible pulmonary embolus, on whom I am consulted for evaluation fo a drop in Hgb from 10.5 to 7.0. He has also had an increase in his BUN/Cr from 31/1.2 to 92/2.1. Pt is on BIPAP and unable to give a history, and is not cooperative. History obtained from chart and from son-in-law. Pt just had an IVC filter placed. He was on ASA/Plavix on admission, but these have been discontinued. Of note, he has a hx of anemia with Heme + stool in 2014, and apparently refused EGD at [facility] then. Here, he was found to have Heme+ stool, but no thomas blood. Pt does have a hx of prostate cancer treated with XRT. Past History Past Medical History: atrial fib, anemia, CAD, hyperlipidemia, stroke, other ( PAD, prostate cancer) Past Surgical History: appendectomy, CABG, Other (carotid enarterectomy, prostatectomy, back surgery) Social history: other (former smoker) Family history: no significant family history Medications and Allergies Allergies Allergy/AdvReac Type Severity Reaction Status Date / Time No Known Allergies Allergy Verified 12/26/17 14:37 Home Medications Medication Instructions Recorded Confirmed Last Taken Type Aspirin 81 mg PO DAILY 12/26/17 12/26/17 Unknown History Cilostazol 50 mg PO BID 12/26/17 12/26/17 Unknown History Coreg 12.5 mg PO BID 12/26/17 12/26/17 Unknown History Lisinopril/Hydrochlorothiazide 20 mg PO DAILY 12/26/17 12/26/17 Unknown History NIFEdipine 30 mg PO BID 12/26/17 12/26/17 Unknown History Plavix 75 mg PO DAILY 12/26/17 12/26/17 Unknown History Rosuvastatin Calcium 20 mg PO DAILY 12/26/17 12/26/17 Unknown History Active Meds: Active Medications Acetaminophen (Tylenol) 650 mg PO Q4H PRN PRN Reason: Pain MILD(1-3)/Fever >100.5/BANUELOS Last Admin: 12/27/17 22:29 Dose: 650 mg Atorvastatin Calcium (Lipitor) 40 mg PO QHS [facility] Last Admin: 12/28/17 21:55 Dose: 40 mg Cilostazol (Pletal) 50 mg PO BID [facility] Last Admin: 12/28/17 21:55 Dose: 50 mg Famotidine (Pepcid) 20 mg IV BID [facility] Last Admin: 12/28/17 21:55 Dose: 20 mg Furosemide (Lasix) 40 mg IV DAILY [facility] Last Admin: 12/28/17 17:43 Dose: Not Given Sodium Chloride (Nacl 0.9% 1000 Ml) 1,000 mls @ 42 mls/hr IV DIRECT [facility] Last Admin: 12/29/17 02:36 Dose: 42 mls/hr Metoprolol Tartrate (Lopressor) 50 mg PO BID [facility] Last Admin: 12/29/17 09:45 Dose: Not Given Morphine Sulfate (Morphine) 2 mg IV Q4H PRN PRN Reason: Pain, Moderate (4-6) Nifedipine (Procardia Xl) 30 mg PO BID [facility] Last Admin: 12/29/17 09:46 Dose: Not Given Ondansetron HCl (Zofran) 4 mg IV Q4H PRN PRN Reason: Nausea And Vomiting Last Admin: 12/28/17 15:16 Dose: 4 mg Sodium Chloride (Sodium Chloride Flush Syringe 10 Ml) 10 ml IV BID [facility] Last Admin: 12/28/17 21:56 Dose: 10 ml Sodium Chloride (Sodium Chloride Flush Syringe 10 Ml) 10 ml IV PRN PRN PRN Reason: LINE FLUSH Review of Systems ROS unobtainable: due to mental status (and pt is on BIPAP) Exam - Constitutional Vitals: Temp Pulse Resp BP Pulse Ox 97.9 F 80 21 99/67 97 12/29/17 06:30 12/29/17 09:45 12/29/17 06:30 12/29/17 09:45 12/29/17 06:30 General appearance: Present: mild distress, other (on BIPAP and appears uncomfortable with mask, does not respond to command) - EENT Eyes: Present: PERRL, EOM intact - Respiratory Respiratory effort: labored Respiratory: bilateral: other (few crackles anteriorly) - Cardiovascular Rhythm: irregularly irregular - Abdominal General gastrointestinal: Present: soft, non-tender - Rectal Rectal Exam: other (Ext hemorrhoids, small clump of solid brown stool surrounded by dark greeish-black liquid, no thomas red blood) Results - Labs CBC & Chem 7: 12/29/17 06:34 12/29/17 06:34 Labs: Abnormal lab results 12/28/17 12/28/17 12/28/17 Range/Units 13:32 13:32 14:59 WBC (4.5-11.0) K/mm3 RBC (3.65-5.03) M/mm3 Hgb 6.9 L (11.8-15.2) gm/dl Hct 22.0 L (35.5-45.6) % MCV (84-94) fl MCHC (32-34) % RDW (13.2-15.2) % BUN (9-20) mg/dL Creatinine (0.8-1.5) mg/dL Glucose (75-100) mg/dL Urine Creatinine 28.8 H (0.1-20.0) mg/dL Crossmatch See Detail 12/29/17 12/29/17 Range/Units 06:34 06:34 WBC 12.0 H (4.5-11.0) K/mm3 RBC 2.38 L (3.65-5.03) M/mm3 Hgb 7.0 L (11.8-15.2) gm/dl Hct 22.7 L (35.5-45.6) % MCV 96 H (84-94) fl MCHC 31 L (32-34) % RDW 17.5 H (13.2-15.2) % BUN 92 H (9-20) mg/dL Creatinine 2.1 H (0.8-1.5) mg/dL Glucose 103 H (75-100) mg/dL Urine Creatinine (0.1-20.0) mg/dL Crossmatch Assessment and Plan 1. Anemia, Heme + stool - acute drop in H/H, along with increased BUN/Cr ratio worrisome for possibly UGI bleed, but no evidence of severe bleed. Agree with stopping anticoagulation due to this bleed and drop in H/H. Discussed options with stepson, including proceeding with EGD to try and ascertain a bleeding source and treat, vs empiric PPI alone. If EGD negative, would need to do colonoscopy and then further evaluation depending on progress. Drop in H/H may well NOT be due to GI blood loss, with Heme+ stool being due to XRT proctitis or the hemorrhoid, but would need to scope to ensure. Alternative would be comfort measures only, with blood transfusion to a limited amount, empiric PPI, and monitor. If pt fails to stabilize after several units pRBC, would not continue to transfuse, but would focus on comfort measures only. - stepson states they do not want intervention with endoscopy, and agrees with latter approach. Discussed with Dr. Velázquez. Will sign off. Please call as needed.
--- NOTE | 2017-12-29 13:22 | Progress Note ---
Assessment and Plan - Patient Problems (1) Shortness of breath Current Visit: Yes Status: Acute Plan to address problem: The patient's shortness of breath and hypoxemia is likely multifactorial. There is bilateral pleural effusion worse on the left, and also evidence of mild interstitial edema, likely due to systolic heart failure and fluid overload. Echocardiogram shows a 4 chamber dilated cardiomyopathy, with left ventricle ejection fraction 35-40%, severe dilatation of both right and left atria. Also mild to moderate calcific aortic stenosis. (2) Acute exacerbation of congestive heart failure Onset Date: ~12/26/17 Current Visit: Yes Status: Acute Qualifiers: Qualified Code(s): I50.43 - Acute on chronic combined systolic (congestive) and diastolic (congestive) heart failure Plan to address problem: Systolic heart failure and coronary artery disease will be treated medically with optimal diuretics, afterload reducing agents, beta blockers. He is not a candidate for further ischemic cardiac workup. (3) Chronic atrial fibrillation Current Visit: Yes Status: Acute Plan to address problem: Rate control therapy will be optimized, patient is not a candidate for long- term oral anticoagulation. Subjective Date of service: 12/29/17 Interval history: The patient is a frail elderly 87-year-old with multiple comorbidities including dementia, coronary artery disease, previous coronary bypass, prior CVA and prior carotid endarterectomy. He also has what appears to be chronic atrial fibrillation. Due to a history of GI bleed, chronic anemia, possibly his frail elderly status, he is assessed as a poor candidate for oral anticoagulation therapy. He presented to this hospital 2 days ago with shortness of breath and hypoxemia. A chest x-ray on my review demonstrates bilateral pleural effusion with a very small effusion on the right, and a large, moderate sized effusion on the left. There is cardiomegaly, and evidence of mild interstitial edema. In addition, the patient underwent workup for venous thromboembolism and is found to have an acute DVT of the left lower extremity. Venous thromboembolism has been treated with insertion of an IVC filter. Currently, the patient is on the telemetry floor, on BiPAP therapy. On telemetry, he remains in atrial fibrillation with a well-controlled ventricular response. Objective Vital Signs Temp Pulse Resp BP BP Pulse Ox 12/29/17 09:45 80 99/67 12/29/17 06:30 97.9 F 80 21 99/67 97 12/29/17 06:00 98.0 F 77 20 109/76 96 12/29/17 05:30 97.6 F 80 18 105/74 97 12/29/17 05:00 97.8 F 80 20 100/67 97 12/29/17 04:30 97.9 F 78 21 115/87 95 12/29/17 04:00 97.7 F 86 21 122/88 95 12/29/17 03:30 97.8 F 99 H 21 110/76 96 12/29/17 03:15 97.3 F L 69 21 126/89 94 12/28/17 23:15 97.3 F L 69 24 126/90 86 12/28/17 23:12 96 H 33 H 96 12/28/17 22:00 113 H 96 12/28/17 21:04 97.4 F L 77 24 85/39 95 12/28/17 17:17 98.8 F 46 L 18 108/53 94 12/28/17 16:03 108 H 108/53 93 12/28/17 14:00 113 H - Physical Examination General: Cachectic, Other (frail, elderly, chronically ill-appearing) HEENT: Positive: PERRL Neck: Positive: neck supple Cardiac: Positive: irregularly irregular Lungs: Positive: Decreased Breath Sounds, Other (on BiPAP therapy) Neuro: Positive: Grossly Intact Abdomen: Positive: Soft Skin: Positive: Clear Extremities: Present: edema (trace) - Labs and Meds CBC 12/28/17 12/29/17 Range/Units 13:32 06:34 WBC 12.0 H (4.5-11.0) K/mm3 RBC 2.38 L (3.65-5.03) M/mm3 Hgb 6.9 L 7.0 L (11.8-15.2) gm/dl Hct 22.0 L 22.7 L (35.5-45.6) % Plt Count 140 (140-440) K/mm3 Comprehensive Metabolic Panel 12/29/17 Range/Units 06:34 Sodium 140 (137-145) mmol/L Potassium 4.8 (3.6-5.0) mmol/L Chloride 99.9 (98-107) mmol/L Carbon Dioxide 24 (22-30) mmol/L BUN 92 H (9-20) mg/dL Creatinine 2.1 H (0.8-1.5) mg/dL Glucose 103 H (75-100) mg/dL Calcium 8.5 (8.4-10.2) mg/dL - Imaging and Cardiology EKG: report reviewed (atrial fibrillation heart rate of 125 ventricular premature complex left anterior fascicular block EKG interpreted by me)
--- NOTE | 2017-12-29 13:49 | Progress Note ---
Assessment and Plan - Patient Problems (1) Acute tubular necrosis Current Visit: Yes Status: Acute Plan to address problem: suspect acute ischemic ATN in the setting of hemorrhagic anemia, hypotensive episodes. IV diuresis contributing to superimposed pre-renal azotemia. Out of proportion elevation of BUN to Cr indicate possible acute GI bleed. Awaiting another PRBC transfusion. Renal function continues to decline with BUN/Cr 90/ 2.1mg/dl. Discussed with patient's family regarding goals of care, who expresses that he would not wanted to be on dialysis, even if it was acute/ temporary, they are leaning towards comfort/hospice care. cont supportive care for ATN avoid nephrtoxins, NSAIDs IV contrast, keep MAP > 65mmHg (2) Acute post-hemorrhagic anemia Current Visit: Yes Status: Acute Plan to address problem: GI work up on going, heparin gtt was stopped. pending additional 1PRBC transfusion (3) Acute exacerbation of congestive heart failure Onset Date: ~12/26/17 Current Visit: Yes Status: Acute Qualifiers: Heart failure type: combined systolic and diastolic Qualified Code(s): I50.43 - Acute on chronic combined systolic (congestive) and diastolic ( congestive) heart failure Plan to address problem: cont lasix 40mg IV daily (4) Chronic atrial fibrillation Current Visit: Yes Status: Acute Plan to address problem: rate control as per cardiology, poor candidate for A/C given h/o GI bleed (5) Deep vein thrombosis (DVT) of left lower extremity Current Visit: Yes Status: Acute Plan to address problem: s/p IVC filter placement Subjective Date of service: 12/29/17 Principal diagnosis: VIRGIL Interval history: pt is on BIPAP, confused, lethargic, family at bedside Objective - Vital Signs Vital signs: Vital Signs - 12hr 12/29/17 12/29/17 12/29/17 03:15 03:30 04:00 Temperature 97.3 F L 97.8 F 97.7 F Pulse Rate 69 99 H 86 Respiratory 21 21 21 Rate Blood Pressure 126/89 110/76 122/88 O2 Sat by Pulse 94 96 95 Oximetry 12/29/17 12/29/17 12/29/17 04:30 05:00 05:30 Temperature 97.9 F 97.8 F 97.6 F Pulse Rate 78 80 80 Respiratory 21 20 18 Rate Blood Pressure 115/87 100/67 105/74 O2 Sat by Pulse 95 97 97 Oximetry 12/29/17 12/29/17 12/29/17 06:00 06:30 09:45 Temperature 98.0 F 97.9 F Pulse Rate 77 80 80 Respiratory 20 21 Rate Blood Pressure 109/76 99/67 99/67 O2 Sat by Pulse 96 97 Oximetry - General Appearance General appearance: well-developed, moderate distress, fatigue EENT: ATNC, PERRL, mucous membranes moist Neck: no JVD Respiratory: Present: Decreased Breath Sounds Cardiology: regular, S1S2 Gastrointestinal: normoactive bowel sounds Integumentary: no rash, other (+ edema ) Neurologic: confused, disoriented - Lab 12/29/17 06:34 12/29/17 06:34 Most recent lab results Calcium 8.5 mg/dL (8.4-10.2) 12/29/17 06:34 Urine Creatinine 28.8 mg/dL (0.1-20.0) H 12/28/17 14:59 Urine Sodium 70 mmol/L 12/28/17 14:59 Urine Total Protein 7 mg/dL (5-11.8) 12/28/17 14:59
[2017-12-29] MEDS: PLETAL PO SCH (22:50)
[2017-12-29] MEDS: PEPCID IV SCH (22:51)
[2017-12-29] MEDS: SODIUM CHLORIDE FLUSH SYRINGE 10 ML IV SCH (22:55)
[2017-12-30 05:14] LABS: Hematocrit 26.5 % (35.5-45.6); Hemoglobin 8.8 gm/dl (11.8-15.2); Mean Corpuscular HGB Conc 33 % (32-34); Mean Corpuscular Hemoglobin 31 pg (28-32); Mean Corpuscular Volume 93 fl (84-94); Platelet Count 148 K/mm3 (140-440); Red Blood Count 2.85 M/mm3 (3.65-5.03); Red Cell Distribution Width 17.8 % (13.2-15.2)
[2017-12-30 05:33] LABS: Calcium 8.5 mg/dL (8.4-10.2)
[2017-12-30 08:23] VITALS: BP 111/51
--- NOTE | 2017-12-30 09:24 | Progress Note ---
Assessment and Plan Imp: 1. Dilated CMP 2. 3. A/C systolic CHF 4. Acute respiratory failure, hypoxia 5. Acute DVT 6. VIRGIL Rec: 1. Diuresis/BP control; stop IVFs 2. Monitor renal function 3. Wean FiO2 4. F/u CXR 5. Possible hospice per [facility] notes Plan of care reviewed w/ patient, he understands/agrees; no family present Subjective Date of service: 12/30/17 Principal diagnosis: VIRGIL Interval history: On 50% VM. s/p IVC filter. SOB better per patient. Asking for water. No new complaints. Active Medications Acetaminophen (Tylenol) 650 mg PO Q4H PRN PRN Reason: Pain MILD(1-3)/Fever >100.5/BANUELOS Last Admin: 12/27/17 22:29 Dose: 650 mg Atorvastatin Calcium (Lipitor) 40 mg PO QHS [facility] Last Admin: 12/29/17 22:51 Dose: 40 mg Cilostazol (Pletal) 50 mg PO BID [facility] Last Admin: 12/30/17 10:03 Dose: 50 mg Famotidine (Pepcid) 20 mg IV BID [facility] Last Admin: 12/30/17 10:04 Dose: 20 mg Furosemide (Lasix) 40 mg IV DAILY [facility] Last Admin: 12/30/17 10:04 Dose: 40 mg Metoprolol Tartrate (Lopressor) 50 mg PO BID [facility] Last Admin: 12/30/17 10:03 Dose: 50 mg Morphine Sulfate (Morphine) 2 mg IV Q4H PRN PRN Reason: Pain, Moderate (4-6) Nifedipine (Procardia Xl) 30 mg PO BID [facility] Last Admin: 12/30/17 10:03 Dose: 30 mg Ondansetron HCl (Zofran) 4 mg IV Q4H PRN PRN Reason: Nausea And Vomiting Last Admin: 12/28/17 15:16 Dose: 4 mg Sodium Chloride (Sodium Chloride Flush Syringe 10 Ml) 10 ml IV BID [facility] Last Admin: 12/30/17 10:04 Dose: 10 ml Sodium Chloride (Sodium Chloride Flush Syringe 10 Ml) 10 ml IV PRN PRN PRN Reason: LINE FLUSH Objective Vital Signs - 12hr 12/29/17 12/29/17 12/29/17 21:48 22:18 22:48 Temperature 98.1 F 98.2 F 98.0 F Pulse Rate 107 H 108 H 108 H Respiratory 22 24 24 Rate Blood Pressure 112/53 115/62 100/70 Blood Pressure [Right] O2 Sat by Pulse 100 100 Oximetry 12/29/17 12/29/17 12/30/17 22:51 23:39 00:18 Temperature 98.3 F Pulse Rate 108 H 91 H Respiratory 20 24 Rate Blood Pressure 115/62 107/52 96/59 Blood Pressure [Right] O2 Sat by Pulse 100 Oximetry 12/30/17 12/30/17 12/30/17 00:40 02:10 08:21 Temperature 97.8 F 98.4 F Pulse Rate 82 95 H 86 Respiratory 22 28 H 20 Rate Blood Pressure Blood Pressure 96/59 111/51 [Right] O2 Sat by Pulse 100 94 87 Oximetry 12/30/17 08:23 Temperature Pulse Rate Respiratory Rate Blood Pressure Blood Pressure [Right] O2 Sat by Pulse 94 Oximetry Constitutional: no acute distress, alert Eyes: non-icteric ENT: oropharynx moist Neck: supple Effort: normal Ascultation: Bilateral: rales Cardiovascular: irregular rhythm (no r/g; III/ systolic murmur throughout) Gastrointestinal: normoactive bowel sounds, soft, non-tender Integumentary: normal Extremities: no cyanosis, no edema, pink and warm Neurologic: normal mental status, non-focal exam, pupils equal and round, CN II- XII normal CBC and BMP: 12/30/17 04:54 12/30/17 04:54 ABG, PT/INR, D-dimer: ABG POC ABG pH 7.335 (7.35-7.45) L 12/27/17 13:15 POC ABG pCO2 50.8 (35-45) H 12/27/17 13:15 POC ABG pO2 72 (80-105) L 12/27/17 13:15 POC ABG HCO3 27.1 12/27/17 13:15 POC ABG Total CO2 29 12/27/17 13:15 POC ABG O2 Sat 93 12/27/17 13:15 PT/INR, D-dimer PT 15.3 Sec. (12.2-14.9) H 12/26/17 23:32 INR 1.15 (0.87-1.13) H 12/26/17 23:32 Abnormal lab findings: Abnormal Labs 12/26/17 12/26/17 12/26/17 14:44 14:44 15:11 WBC RBC Hgb 11.6 L Hct MCV 98 H MCHC 31 L RDW 18.7 H Plt Count [place] % (Auto) 7.6 H Seg Neutrophils % 77.6 H PT 15.1 H INR Heparin Anti-Xa Level POC ABG pH POC ABG pCO2 POC ABG pO2 BUN 31 H Creatinine Glucose 143 H POC Glucose Calcium Troponin T 0.033 H NT-Pro-B Natriuret Pep Total Protein Albumin HDL Cholesterol 60 H Urine Creatinine Crossmatch 12/26/17 12/26/17 12/26/17 17:04 21:13 23:32 WBC RBC Hgb 10.5 L Hct 33.9 L MCV MCHC RDW Plt Count [place] % (Auto) Seg Neutrophils % PT INR Heparin Anti-Xa Level POC ABG pH POC ABG pCO2 POC ABG pO2 BUN Creatinine Glucose POC Glucose Calcium Troponin T 0.030 H 0.035 H NT-Pro-B Natriuret Pep Total Protein Albumin HDL Cholesterol Urine Creatinine Crossmatch 12/26/17 12/27/17 12/27/17 23:32 01:46 03:44 WBC RBC 3.45 L Hgb 10.6 L Hct 33.8 L MCV 98 H MCHC RDW 19.2 H Plt Count [place] % (Auto) 8.3 H Seg Neutrophils % 76.8 H PT 15.3 H INR 1.15 H Heparin Anti-Xa Level POC ABG pH 7.287 L POC ABG pCO2 59.3 H POC ABG pO2 73 L BUN Creatinine Glucose POC Glucose Calcium Troponin T NT-Pro-B Natriuret Pep Total Protein Albumin HDL Cholesterol Urine Creatinine Crossmatch 12/27/17 12/27/17 12/27/17 03:44 05:50 12:06 WBC RBC Hgb Hct MCV MCHC RDW Plt Count [place] % (Auto) Seg Neutrophils % PT INR Heparin Anti-Xa Level 1.85 H POC ABG pH POC ABG pCO2 POC ABG pO2 BUN 45 H Creatinine Glucose 109 H POC Glucose 127 H Calcium Troponin T NT-Pro-B Natriuret Pep Total Protein 5.9 L Albumin 3.7 L HDL Cholesterol Urine Creatinine Crossmatch 12/27/17 12/28/17 12/28/17 13:15 04:28 04:28 WBC RBC 2.50 L Hgb 7.6 L D Hct 24.3 L D MCV 97 H MCHC 31 L RDW 18.0 H Plt Count 133 L [place] % (Auto) Seg Neutrophils % PT INR Heparin Anti-Xa Level POC ABG pH 7.335 L POC ABG pCO2 50.8 H POC ABG pO2 72 L BUN 66 H Creatinine 1.7 H Glucose POC Glucose Calcium 8.1 L Troponin T NT-Pro-B Natriuret Pep Total Protein Albumin HDL Cholesterol Urine Creatinine Crossmatch 12/28/17 12/28/17 12/28/17 11:50 11:50 13:32 WBC RBC Hgb 7.0 L Hct 22.7 L MCV MCHC RDW Plt Count [place] % (Auto) Seg Neutrophils % PT INR Heparin Anti-Xa Level POC ABG pH POC ABG pCO2 POC ABG pO2 BUN Creatinine Glucose POC Glucose Calcium Troponin T NT-Pro-B Natriuret Pep 16282 H Total Protein Albumin HDL Cholesterol Urine Creatinine Crossmatch See Detail 12/28/17 12/28/17 12/29/17 13:32 14:59 06:34 WBC 12.0 H RBC 2.38 L Hgb 6.9 L 7.0 L Hct 22.0 L 22.7 L MCV 96 H MCHC 31 L RDW 17.5 H Plt Count [place] % (Auto) Seg Neutrophils % PT INR Heparin Anti-Xa Level POC ABG pH POC ABG pCO2 POC ABG pO2 BUN Creatinine Glucose POC Glucose Calcium Troponin T NT-Pro-B Natriuret Pep Total Protein Albumin HDL Cholesterol Urine Creatinine 28.8 H Crossmatch 12/29/17 12/30/17 12/30/17 06:34 04:54 04:54 WBC RBC 2.85 L Hgb 8.8 L Hct 26.5 L MCV MCHC RDW 17.8 H Plt Count [place] % (Auto) Seg Neutrophils % PT INR Heparin Anti-Xa Level POC ABG pH POC ABG pCO2 POC ABG pO2 BUN 92 H 88 H Creatinine 2.1 H 2.0 H Glucose 103 H 118 H POC Glucose Calcium Troponin T NT-Pro-B Natriuret Pep Total Protein Albumin HDL Cholesterol Urine Creatinine Crossmatch Chest x-ray: report reviewed, image reviewed (c/w CHF)
[2017-12-30] MEDS: PROCARDIA XL PO SCH (10:03)
[2017-12-30] MEDS: PLETAL PO SCH ×2 (10:03→15:01)
[2017-12-30] MEDS: LOPRESSOR PO SCH (10:03)
[2017-12-30] MEDS: LASIX IV SCH ×2 (10:04→15:01)
[2017-12-30] MEDS: SODIUM CHLORIDE FLUSH SYRINGE 10 ML IV SCH ×2 (10:04→15:01)
[2017-12-30] MEDS: PEPCID IV SCH ×2 (10:04→15:01)
--- NOTE | 2017-12-30 10:24 | Progress Note ---
Assessment and Plan - Patient Problems (1) Acute tubular necrosis Current Visit: Yes Status: Acute Plan to address problem: suspect acute ischemic ATN in the setting of hemorrhagic anemia, hypotensive episodes. IV diuresis contributing to superimposed pre-renal azotemia. Renal function stabilizing. Out of proportion elevation of BUN to Cr indicate possible acute GI bleed. hb stable at 8.8 s/p blood transfusion. cont supportive care for ATN avoid nephrtoxins, NSAIDs IV contrast, keep MAP > 65mmHg Pt decided for hospice care. will sign off. (2) Acute post-hemorrhagic anemia Current Visit: Yes Status: Acute Plan to address problem: Hb improved s/p blood transfusion. (3) Acute exacerbation of congestive heart failure Onset Date: ~12/26/17 Current Visit: Yes Status: Acute Qualifiers: Heart failure type: combined systolic and diastolic Qualified Code(s): I50.43 - Acute on chronic combined systolic (congestive) and diastolic ( congestive) heart failure Plan to address problem: cont lasix 40mg IV daily (4) Chronic atrial fibrillation Current Visit: Yes Status: Acute Plan to address problem: rate control as per cardiology, poor candidate for A/C given h/o GI bleed (5) Deep vein thrombosis (DVT) of left lower extremity Current Visit: Yes Status: Acute Plan to address problem: s/p IVC filter placement Subjective Date of service: 12/30/17 Principal diagnosis: VIRGIL Interval history: pt awake, confused, disoriented Objective - Vital Signs Vital signs: Vital Signs - 12hr 12/29/17 12/29/17 12/29/17 22:48 22:51 23:39 Temperature 98.0 F 98.3 F Pulse Rate 108 H 108 H 91 H Respiratory 24 20 Rate Blood Pressure 100/70 115/62 107/52 Blood Pressure [Right] O2 Sat by Pulse 100 100 Oximetry 12/30/17 12/30/17 12/30/17 00:18 00:40 02:10 Temperature 97.8 F Pulse Rate 82 95 H Respiratory 24 22 28 H Rate Blood Pressure 96/59 Blood Pressure 96/59 [Right] O2 Sat by Pulse 100 94 Oximetry 12/30/17 12/30/17 12/30/17 08:21 08:23 10:03 Temperature 98.4 F Pulse Rate 86 Respiratory 20 Rate Blood Pressure 111/51 Blood Pressure 111/51 [Right] O2 Sat by Pulse 87 94 Oximetry - General Appearance General appearance: appears stated age, moderate distress EENT: ATNC, PERRL, mucous membranes moist Neck: no JVD Respiratory: Present: Clear to Ascultation Cardiology: regular, S1S2 Gastrointestinal: normoactive bowel sounds Integumentary: no rash Neurologic: no focal deficit, strength 5/5, CN 3-12 intact - Lab 12/30/17 04:54 12/30/17 04:54 Most recent lab results Calcium 8.5 mg/dL (8.4-10.2) 12/30/17 04:54 Urine Creatinine 28.8 mg/dL (0.1-20.0) H 12/28/17 14:59 Urine Sodium 70 mmol/L 12/28/17 14:59 Urine Total Protein 7 mg/dL (5-11.8) 12/28/17 14:59
--- NOTE | 2017-12-30 10:28 | Progress Note ---
Assessment and Plan Acute hypoxic respiratory failure, likely multifactorial. There is bilateral pleural effusion worse on the left and also evidence of mild interstitial edema, likely due to systolic heart failure and fluid overload. Acute systolic heart failure Echocardiogram shows a 4 chamber dilated cardiomyopathy, with left ventricle ejection fraction 35-40%, severe dilatation of both right and left atria. Also mild to moderate calcific aortic stenosis. Chronic atrial fibrillation, rate control patient is not a candidate for correction oral anticoagulation. Hx of CAD s/p CABG Anemia s/p blood transfusion Nonspecific troponin AND/DNR status Recommendations: Continue medical therapy for systolic heart failure and coronary artery disease. Continue rate control therapy for his atrial fibrillation. Otherwise, conservative cardiac management. Subjective Date of service: 12/30/17 Principal diagnosis: VIRGIL Interval history: Patient is alert and oriented. Venturi mask is in place. No distress noted. Objective Vital Signs Temp Pulse Resp BP BP Pulse Ox 12/30/17 10:03 111/51 12/30/17 08:23 94 12/30/17 08:21 98.4 F 86 20 111/51 87 12/30/17 02:10 95 H 28 H 94 12/30/17 00:40 97.8 F 82 22 96/59 100 12/30/17 00:18 24 96/59 12/29/17 23:39 98.3 F 91 H 20 107/52 100 12/29/17 22:51 108 H 115/62 12/29/17 22:48 98.0 F 108 H 24 100/70 100 12/29/17 22:18 98.2 F 108 H 24 115/62 100 12/29/17 21:48 98.1 F 107 H 22 112/53 12/29/17 21:18 98.4 F 95 H 22 114/50 100 12/29/17 20:48 98.1 F 122 H 22 104/48 100 12/29/17 20:33 98.1 F 112 H 20 135/51 100 12/29/17 19:50 88 20 93 12/29/17 19:30 98.2 F 108 H 24 135/51 100 12/29/17 17:08 110 H 12/29/17 16:57 98.3 F 126 H 18 112/54 100 - Physical Examination General: No Apparent Distress, Cachectic, Other (frail, elderly, chronically ill -appearing) HEENT: Positive: PERRL Cardiac: Positive: irregularly irregular Skin: Positive: Bruising - Labs and Meds CBC 12/30/17 Range/Units 04:54 WBC 10.1 (4.5-11.0) K/mm3 RBC 2.85 L (3.65-5.03) M/mm3 Hgb 8.8 L (11.8-15.2) gm/dl Hct 26.5 L (35.5-45.6) % Plt Count 148 (140-440) K/mm3 Comprehensive Metabolic Panel 12/30/17 Range/Units 04:54 Sodium 145 (137-145) mmol/L Potassium 4.0 (3.6-5.0) mmol/L Chloride 104.9 (98-107) mmol/L Carbon Dioxide 28 (22-30) mmol/L BUN 88 H (9-20) mg/dL Creatinine 2.0 H (0.8-1.5) mg/dL Glucose 118 H (75-100) mg/dL Calcium 8.5 (8.4-10.2) mg/dL - Imaging and Cardiology EKG: report reviewed (atrial fibrillation heart rate of 125 ventricular premature complex left anterior fascicular block EKG interpreted by me)
--- NOTE | 2017-12-30 12:17 | Discharge Summary ---
Providers - Providers Date of Admission: 12/26/17 21:14 Date of discharge: 12/30/17 Attending physician: DEJA CONTRERAS 12/26/17 21:25 Consult to Physician [CONS] Routine Comment: Consulting Provider: CARMEN NICHOLSON Physician Instructions: Reason For Exam: ACS 12/27/17 13:49 Physical Therapy Evaluation and Treat [CONS] Urgent Comment: Possible Rehab needed Reason For Exam: Generl Weakness Difficulty with ambulation 12/27/17 13:51 Occupational Therapy Evaluate and Treat [CONS] Urgent Comment: possible need for Rehab placement Reason For Exam: General Weakness difficulty with ambulation 12/27/17 16:36 Consult to Physician [CONS] Routine Comment: Consulting Provider: DELROY RUSHING Physician Instructions: Reason For Exam: respiratory failure on bipap 12/27/17 17:11 Consult to Physician [CONS] Routine Comment: Consulting Provider: VERNON MCKEON Physician Instructions: Reason For Exam: acute left leg dvt, evaluate for ivc filter 12/27/17 17:12 Consult to Interventional Radiology [CONS] Routine Consulting Provider: VERNON SMILEY Reason For Exam: IVC filter Place consult to:: antoinette Notified:: a service Phone number called:: [phone] Was contact made?: Yes If yes, spoke with:: starr Time called:: 08:23 12/28/17 08:37 Consult to Physician [CONS] Routine Comment: Consulting Provider: BRICE BRADSHAW Physician Instructions: Reason For Exam: ARF 12/28/17 11:16 Consult to Physician [CONS] Routine Comment: Consulting Provider: ANN HERNANDEZ Physician Instructions: Reason For Exam: evaluate for GI and drop in hct 12/30/17 10:12 Consult to Case Management [CONS] Stat Services Needed at Discharge: Other Notified:: Aster Phone number called:: [phone] Was contact made?: Yes Time called:: 10:13 Additional Physician Instructions: Family has decided on hospice care. Primary care physician: VERNON ALEXANDRE Hospitalization Condition: Poor Hospital course: Patient is 87-year-old man with a history of atrial fibrillation, GI bleed, hypertension, remote prostate cancer status post brachytherapy, coronary artery disease status post CABG, dyslipidemia, peripheral arterial disease and anemia of chronic disease who presents with shortness of breath and chest pains. Heparin drip started for elevated troponin pCXR reported as findings which may represent pulmonary edema versus nonspecific postinflammatory change of pneumonitis and probable bilateral pleural effusion, left greater than right, correlate clinically. 12/27/17 13:54 - Radiology Dept. Note by SAMIISABELLE [facility] Num: [id number] : 1930 Patient Age: 87 VASCULAR LAB.PRELIMINARY REPORT. BLE VENOUS DUPLEX DONE BEDSIDE. TECHNICALLY LIMITED DUE TO AMS/MOVEMENT. EVIDENCE OF ACUTE DVT IN THE LT.POPLITEAL VEIN EXTENDING TO THE LT.PTV/PERONEAL VEINS IN THE MID CALF. LLOYD (RN) INFORMED AT 1338. Initialized on 12/27/17 13:54 - END OF NOTE -Acute combined respiratory failure, present on admission: Continue BiPAP, consulted and discussed with Security Delivery Specialist. -Mildly Elevated troponin, unlikely ACS, Cardiology is following. 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 -Atrial fibrillation not on anticoagulation most likely due to prior history of GI bleed and anemia, will defer to Cardiology -Acute left leg DVT, complex medical decision, because history of GI bleed, currently on IV heparin drip: Consult vascular for evaluation of IVC filter -Anemia, unknown baseline. Acute on chronic anemia, Currently on heparin drip, check FOBT -Acute renal failure, vasomotor nephropathy with suspect ATN: Renal is following 12/28/17: off bipap on Vm, but he keeps taking it off, H/H dropped, as well as plt. No BM in 2 days, will give soap suds enema for FOBT. Will stop heparin drip. Cr up to 1.7 from 1.2; therefore, I consulted Nephrology for the VIRGIL. Decrease iv lasix to once a day. He is still on nss at 42ml/hr ECHO to be done today. Pulm, Vascular and Nephrology consult pending Restraints renewed transfuse 1 unit of prbc, consult GI I called Matthias Maria Elena [phone], spoke with his Opal, he has signs of dementia per Opal (step father and POA)==>23/[address] Vernon Alexandre' s ([place]) office in [place], [place] discussed code status, they will decide and call me back prognosis is guarded, watermaster prognosis poor. patients' (Matthias's mother) in hospice with daughter, Jamilah. 12/29/17: D/w Matthias at nursing station and d/w patient's Leonila over the phone, they have elected to make him DNR/DNI understanding that the IVC is attempt to prevent embolism to lungs, which may have already occurred. No CTA chest because of renal failure and no v/q because of high o2 requirement and unable to treat with anticoagulation anyway. Now, Mr. Solis has active melanic stools, hgb is at 7.0 s/p 1 unit yesterday, will give more blood transfusion but the risk of more p. edema and worsening heart failure is high. I stopped the asa and plavix due to melanic stools and gib. I have also called and d/w GI , Dr. Hernandez. s/p IVC filter placed. DNR ordered 12/30/17: He still has black tarry stools, but h/h steady, hgb 8.8, his mental status improved today, a/o x 2. Cr is 2.0. He is still very ill. Going to [facility] inpatient hospice. Disposition: [facility] ([facility]) Time spent for discharge: 43 minutes Core Measure Documentation - Palliative Care Palliative Care/ Comfort Measures: Hospice Care - Core Measures Any of the following diagnoses?: DVT/PE - VTE Discharge Requirements Deep Vein Thrombosis/Pulmonary Embolism Present on Admission: Yes Has pt received <5 days of overlap therapy or INR<2.0: No Anticoagulant overlap therapy prescribed at discharge: No Contraindication No Overlap Therapy order at DC: Medical Contraindication (due to bleeding) Exam - Physical Exam Narrative exam: GEN: Ill-appearing, NAD, AWAKE, ALERT, ORIENTATED 2, missed the location, HEENT: NCAT, EOMI, PERRL, OP Clear NECK: supple, no adenopathy, no thyromegaly, equivocal JVD CVS/HEART: Irregular regular NORMAL S1S2, pulses present bilaterally CHEST/LUNGS: Bibasilar crackles Symmetrical chest expansion, good air entry bilaterally GI/Abdomen: soft, NTND, good bowel sounds, no guarding or rebound /Bladder: no suprapubic tenderness, no CVA or paraspinal tenderness EXT/Skin: Bilateral pitting leg edema MSK: FROM x 4 Neuro: CN 2-12 grossly intact, no new focal deficits Psych: calm - Constitutional Vitals: Temp Pulse Resp BP Pulse Ox 98.4 F 86 20 111/51 94 12/30/17 08:21 12/30/17 08:21 12/30/17 08:21 12/30/17 10:03 12/30/17 08:23 Plan Activity: fall precautions, other (aspiration precautions) Diet: advance as tolerated Follow up with: VERNON ALEXANDRE MD [Primary Care Provider] - 7 Days
--- NOTE | 2018-01-01 17:46 | Vascular Lab Report ---
LOWER EXTREMITY VENOUS DUPLEX: REASON FOR EXAM: Pain and swelling of the lower extremities. COMMENTS ON THE RIGHT: All veins visualized are freely compressible without evidence of internal echogenicity. Flow is spontaneous and phasic throughout. COMMENTS ON THE LEFT: Acute deep venous thrombosis is seen in the popliteal and proximal tibial veins. The remaining veins visualized are freely compressible without evidence of internal echogenicity. Spontaneous and phasic flow is present proximally. IMPRESSION: Acute deep venous thrombosis of the popliteal and proximal tibial veins of the left lower extremity. No evidence of acute deep venous thrombosis in the right lower extremity. Surgical absence of the greater saphenous veins bilaterally.
== END 2017-12-30 16:47 | disposition hospice, inpatient (51) | DRG 166 ==
LOC: ED 14:00 → 4A 21:14
PROVIDERS: ADMIT Internal Medicine; ATTEND Internal Medicine
PROC: 5A09457 Assistance with Respiratory Ventilation, 24-96 Consecutive Hours, Continuous Positive Airway Pressure (ICD-10-PCS; 2017-12-27)
PROC: 4A033R1 Measurement of Arterial Saturation, Peripheral, Percutaneous Approach (ICD-10-PCS; 2017-12-27)
PROC: 06H03DZ Insertion of Intraluminal Device into Inferior Vena Cava, Percutaneous Approach (ICD-10-PCS; principal; 2017-12-29)
PROC: B51B1ZZ Fluoroscopy of Right Lower Extremity Veins using Low Osmolar Contrast (ICD-10-PCS; 2017-12-29)
PROC: 30233N1 Transfusion of Nonautologous Red Blood Cells into Peripheral Vein, Percutaneous Approach (ICD-10-PCS; 2017-12-29)
DX: J96.01 Acute respiratory failure with hypoxia (principal); N17.0 Acute kidney failure with tubular necrosis; I50.43 Acute on chronic combined systolic (congestive) and diastolic (congestive) heart failure; I82.432 Acute embolism and thrombosis of left popliteal vein; D62 Acute posthemorrhagic anemia; I42.0 Dilated cardiomyopathy; I82.442 Acute embolism and thrombosis of left tibial vein; I25.10 Atherosclerotic heart disease of native coronary artery without angina pectoris; I48.2 Chronic atrial fibrillation; D63.1 Anemia in chronic kidney disease; I35.0 Nonrheumatic aortic (valve) stenosis; Z66 Do not resuscitate; Z51.5 Encounter for palliative care; Z85.46 Personal history of malignant neoplasm of prostate; Z79.82 Long term (current) use of aspirin; Z86.73 Personal history of transient ischemic attack (TIA), and cerebral infarction without residual deficits; Z90.49 Acquired absence of other specified parts of digestive tract; Z95.1 Presence of aortocoronary bypass graft
CPT/HCPCS: 36415; 36600; 37191; 71045; 80048; 80053; 80061; 81001; 82270; 82570; 82803; 82962; 83036; 83880; 84156; 84300; 84443; 84484; 85014; 85018; 85025; 85027; 85049; 85520; 85610; 85730; 86850; 86870; 86900; 86901; 86902; 86922; 93005; 93010; 93306; 93970; 94660; 94760; 96372; 96374; 96375; A9270-GY; C1880; G8987-GO; G8988-GO; J1644; J1940; J2250; J2270; J2405; J3010; J7030; P9016; Q9967